=== PATIENT | female | born 1970 | race Caucasian/White ===

== ENCOUNTER 2017-03-06 07:58 | Day surgery (SDC) | payer MEDICARE, MEDICAID ==
[2017-02-04 09:01] VITALS: BMI 26.7
[~2017-03-06 07:58] MED LIST: Bupivacaine 0.5% Inj(30mL) ONE; Lidocaine 1% Inj (20ml) ONE; ceFAZolin IV 2 gm in Dextrose 0 GM/0 ML BAG IVPB ONE
[2017-03-06] MEDS ORDERED: Dexamethasone 4 mg/1 ml ONE ×2 (11:25→11:42)
[2017-03-06] MEDS ORDERED: Lidocaine 2% Inj (20ml) ONE (11:25)
[2017-03-06] MEDS ORDERED: ceFAZolin IV 1 gm in Dextrose 1 GM/50 ML BAG IVPB ONE (11:25)
[2017-03-06] MEDS ORDERED: Bupivacaine HCl 0.5% PF (10 ml) Inj ONE ×3 (11:26→11:43)
[2017-03-06] MEDS ORDERED: Lactated Ringer's 1,000 ML IV ONE (11:26)
[2017-03-06] MEDS ORDERED: Propofol 10 mg/ml Inj (20 ML) ONE (11:26)
[2017-03-06] MEDS ORDERED: Midazolam 2 MG/2 ML VIAL ONE (11:26)
[2017-03-06] MEDS ORDERED: Rocuronium 10 mg/ml (5 ml) ONE (11:31)
[2017-03-06] MEDS ORDERED: Bacitracin 500 Units/gm Oint Foilpak UD ONE (11:43)
[2017-03-06] MEDS ORDERED: Neostigmine Methylsulfate 3mg/3ml Syringe IV ONE (12:24)
[2017-03-06] MEDS ORDERED: Oxycodone/Acetaminophen 5/325 mg Tab PO PRN ×2 (12:41)
--- NOTE | 2017-03-06 12:43 | CP.PCM.PN ---
Objective - Vital Signs/Intake and Output Vital Signs (last 24 hours): Temp Pulse Resp BP Pulse Ox 97.8 F 56 L 20 98/66 L 98 03/06/17 08:16 03/06/17 08:16 03/06/17 08:16 03/06/17 08:16 03/06/17 08:16 - Medications Medications: Current Medications Acetaminophen (Tylenol 325mg Tab) 650 mg PO Q6 PRN PRN Reason: Pain, Mild (1-3) Oxycodone/Acetaminophen (Percocet 5/325 Mg Tab) 1 tab PO Q6H PRN PRN Reason: Pain, moderate (4-7) Stop: 03/09/17 12:42 Oxycodone/Acetaminophen (Percocet 5/325 Mg Tab) 2 tab PO Q6H PRN PRN Reason: Pain, severe (8-10) Stop: 03/09/17 12:42
--- NOTE | 2017-03-06 12:44 | PCM.SURG1 ---
Surgeon's Initial Post Op Note - Surgeon's Notes Surgeon: Dr. Cruz Automatic Pinsetter Adjuster: Dr. Preston, Dr. Alan Type of Anesthesia: General Endo, Local Pre-Operative Diagnosis: B/L recurrent HAV Operative Findings: See dictation. I: 30ml 1:1 1% lidocaine plain, 0.5% marcaine plain; 20ml 0.5% marcaine plain; 2ml dexamethasone Post-Operative Diagnosis: same Operation Performed: B/L scar excision, bunionectomy Specimen/Specimens Removed: bone, soft tissue B/L feet Estimated Blood Loss: EBL {In ML}: 5 Blood Products Given: N/A Drains Used: No Drains Post-Op Condition: Good Date of Surgery/Procedure: 03/06/17 Time of Surgery/Procedure: 11:30
[2017-03-06] MEDS ORDERED: HYDROmorphone 0.5 mg/0.5 ml ISec IVP PRN (12:47)
[2017-03-06] MEDS ORDERED: Lactated Ringer's 1,000 ML IV SCH (13:00)
--- NOTE | 2017-03-06 14:49 | RAD ---
PROCEDURE: Bilateral Feet Radiographs. HISTORY: s/o B/L foot surgery COMPARISON: None. FINDINGS: BONES: Right Foot: Osteotomy distal 5th metatarsal. Surgical screw noted. Plantar calcaneal spur. No fracture. Left Foot: No fracture. Plantar calcaneal spur. JOINTS: Right Foot: Normal. No osteoarthritis. Left Foot: Normal. No osteoarthritis. SOFT TISSUES: Right Foot: Normal. Left Foot: Small amount of gas in the interspace between 1st and 2nd metatarsal head indicating likely recent surgery. OTHER FINDINGS: None. IMPRESSION: Right 5th metatarsal osteotomy. Uncertain as to surgery reportedly performed on left foot.
[2017-03-06 15:35] VITALS: BP 93/56; PULSE 65; RESP 20; TEMP 98; O2SAT 99
--- NOTE | 2017-03-11 16:20 | PCM.OP ---
Operative Report - Operative Report Date of Surgery/Procedure: 03/06/17 Time of Surgery/Procedure: 11:30 Surgeon: Dr. Cruz Machine Assembler For Puller Over: Dr. Preston Anesthesia/Sedation: General, local injection Pre-Operative Diagnosis: B/L foot recurrent bunion deformity Post-Operative Diagnosis: same as above Indication for Surgery: This patiet is a 46 y/o female with the aformentioned diagnosis. She is being treated by Dr. Cruz in his office on an out patient basis where she has exhausted all conservative treatment options. All conservative and surgical treatment options as well as all alternatives, benefits, complications and risks to surgical procedure were explained to the patient and his family at length to their understanding. The patient desires surgical intervention at this time. All questions were addressed and answered. No guarantees were given nor implied. The consent was signed and the NPO status was confirmed before bringing the patient into the operating room. Operative Findings: The patient was brought into the operating room and placed on the operating room table in the supine position. A pneumatic ankle tourniquet was applied to the right and left ankles around the supramalleolar area. After induction of IV sedation a local injection consisting of 30ml total of a 1:1 mixture of 1% lidocaine plain and 0.5% marcaine plain were adminsitered to the right and left foot in a local block fashion. After local anesthesia was achieved, the feet was prepped and draped in the usual sterile manner and the procedure began. Procedure/Operation Description: Procedure 1: Right foot bunion correction. Attention was directed to the dorsal medial aspect of the right foot 1st MTPJ where an eliptical incision was made utilizing a 15-blade to excise the previous surgical scar. The incision was deepened through the superficial and subuctaneous tissues using sharp and blunt dissection. Care was taken to retract all vital nuerovascular and tendinous structures throughout the duration of the procedure. Next, attention was directed back to the dorsal medial 1st MTPJ where an inverted L-type capsulotomy was performed. A 15-blade and freer elevator were then utilized to free the periosteal and capsular structures from the head of the first metatarsal. It was noted at this time that there was a prominent hypertrophic portion of bone at the dorsal medial 1st met head. With the head of the 1st metatarsal now adequately exposed, a sagittal saw was used to resect the prominent medial eminence. The sagittal saw was then again utilized to remove any other remaining prominent portions of bone from the 1st met head and proximal phalanx of the hallux. The surgical area was then flused with copious amounts of sterile normal saline. The capsular and periosteal structures were then reapproximated with 2-0 and 3-0 vicryl suture. The subcutaneous tissues were reapproximated with 4-0 vicryl suture. The skin was reapproximated with 4-0 prolene suture. Procedure 2: Left foot bunion correction. Attention was directed to the dorsal medial aspect of the left foot 1st MTPJ where an eliptical incision was made utilizing a 15-blade to excise the previous surgical scar. The incision was deepened through the superficial and subuctaneous tissues using sharp and blunt dissection. Care was taken to retract all vital nuerovascular and tendinous structures throughout the duration of the procedure. Next, attention was directed back to the dorsal medial 1st MTPJ where an inverted L-type capsulotomy was performed. A 15-blade and freer elevator were then utilized to free the periosteal and capsular structures from the head of the first metatarsal. It was noted at this time that there was a prominent hypertrophic portion of bone at the dorsal medial 1st met head. With the head of the 1st metatarsal now adequately exposed, a sagittal saw was used to resect the prominent medial eminence. The sagittal saw was then again utilized to remove any other remaining prominent portions of bone from the 1st met head and proximal phalanx of the hallux. The surgical area was then flused with copious amounts of sterile normal saline. The capsular and periosteal structures were then reapproximated with 2-0 and 3-0 vicryl suture. The subcutaneous tissues were reapproximated with 4-0 vicryl suture. The skin was reapproximated with 4- 0 prolene suture. Estimated Blood Loss: None Complications: None Discharge & Condition: Patient was escorted from the OR to the recovery room with vital signs stable and neurovascular status intact. Patient tolerated the procedure and anesthesia well with no complications. Patient will follow up with Dr. Cruz in his office on an outpt basis.
== END 2017-03-06 15:20 | disposition home or self-care (01) ==
LOC: C.SDS 07:58
PROVIDERS: ATTEND Podiatrist Foot & Ankle Surgery
DX: M21.612 Bunion of left foot (principal); M21.611 Bunion of right foot
CPT/HCPCS: 28296; 73620; 82948; 88307; 88311; J0690; J1100; J2250; J2405; J2704; J2710; J2765; J3010; J7120

== ENCOUNTER 2017-05-02 09:54 | Emergency (ER) | payer MEDICARE, MEDICAID ==
[2017-05-02 09:54] VITALS: BMI 26.7
[2017-05-02 10:14] VITALS: BP 96/66; PULSE 67; RESP 16; TEMP 97.9; O2SAT 98
--- NOTE | 2017-05-02 10:46 | C.PDOC ---
History Of Present Illness 46 y/o F c PMHx diabetes, P/w rectal pain for 2 days. Denies bleeding, fever, abdominal pain, and shortness of breath. Time Seen by Provider: 05/02/17 10:25 Chief Complaint (Nursing): Abdominal Pain History Per: Patient History/Exam Limitations: no limitations Onset/Duration Of Symptoms: Days (x 2) Current Symptoms Are (Timing): Still Present Past Medical History Reviewed: Historical Data, Nursing Documentation, Vital Signs Vital Signs: Last Vital Signs Temp 97.9 F 05/02/17 10:09 Pulse 67 05/02/17 10:09 Resp 16 05/02/17 10:09 BP 96/66 L 05/02/17 10:09 Pulse Ox 98 05/02/17 10:55 - Medical History PMH: Arthritis, Asthma, Bronchitis, COPD, Diabetes Denies: Chronic Kidney Disease Surgical History: Appendectomy, Endoscopy, Tonsillectomy - [facility] Procedures EXCISION OR CORRECTION OF BUNIONETTE (03/02/13) Family History: States: Unknown Family Hx - Social History Hx Tobacco Use: No Hx Alcohol Use: No Hx Substance Use: No - Immunization History Hx Tetanus Toxoid Vaccination: Yes Hx Influenza Vaccination: Yes Hx Pneumococcal Vaccination: Yes Review Of Systems Except As Marked, All Systems Reviewed And Found Negative. Constitutional: Negative for: Fever Respiratory: Negative for: Shortness of Breath Gastrointestinal: Positive for: Rectal Pain. Negative for: Abdominal Pain, Other (Bleeding) Physical Exam - Physical Exam Additional Physical Exam Comments: Constitutional: No acute distress. Head: Normocephalic. Atraumatic. Eyes: PERRL. ENT: Moist mucous membranes. Neck: Supple. Cardiovascular: Regular rate. Radial pulse 2+ bilaterally. Chest: No tenderness. Respiratory: Clear to auscultation bilaterally. GI: Soft. Non-tender. Non-distended. Rectal- Hemorrhoids, non-thrombosed. Back: No CVA tenderness. Musculoskeletal: No tenderness or swelling of extremities. Skin: No rash. Neurologic: Alert, no focal deficit. ED Course And Treatment O2 Sat by Pulse Oximetry: 98 (RA) Pulse Ox Interpretation: Normal Disposition - Disposition Disposition: HOME/ ROUTINE Disposition Time: 10:37 Condition: STABLE Prescriptions: Docusate [Colace] 100 mg PO BID #30 cap Ibuprofen [Motrin] 1 tab PO Q6 #30 tab Phenyleph/Mineral Oil/Petrolat [Preparation H Ointment] 1 appl TOP QID #57 g Instructions: Hemorrhoids (ED) Forms: [facility] (Guinean) - Clinical Impression Clinical Impression: Hemorrhoids - Scribe Statement The provider has reviewed the documentation as recorded by the Scribe Chioma Sandoval All medical record entries made by the Scribe were at my direction and personally dictated by me. I have reviewed the chart and agree that the record accurately reflects my personal performance of the history, physical exam, medical decision making, and the department course for this patient. I have also personally directed, reviewed, and agree with the discharge instructions and disposition.
== END 2017-05-02 10:57 | disposition home or self-care (01) ==
LOC: C.ER 09:54
DX: K64.9 Unspecified hemorrhoids (principal)

== ENCOUNTER 2017-08-08 10:03 | Emergency (ER) | payer MEDICARE, MEDICAID ==
[2017-08-08 10:17] VITALS: BMI 26.5
--- NOTE | 2017-08-08 10:23 | C.PDOC ---
History Of Present Illness 47 year old female with Hx of DM presents to the ED for evaluation of congestion , mild cough with non specific sputum for the past 2 weeks. Patient reports taking steroids, teraflu and Nyquil with no relief. Patient denies fever, nausea , vomit, abdominal pain, headache, weakness, numbness. Time Seen by Provider: 08/08/17 10:11 Chief Complaint (Nursing): Shortness Of Breath History Per: Patient History/Exam Limitations: no limitations Onset/Duration Of Symptoms: Days Current Symptoms Are (Timing): Still Present Quality: Other (Congestion) Exacerbating Factor(s): Coughing Severity: Mild Associated Symptoms: Productive Cough (Non specific). denies: Dizziness, Light- headedness, Tingling In Hands Or Face Recent travel outside of the [place]: No Additional History Per: Patient Past Medical History Reviewed: Historical Data, Nursing Documentation, Vital Signs Vital Signs: Last Vital Signs Temp 98.1 F 08/08/17 10:39 Pulse 99 H 08/08/17 10:39 Resp 20 08/08/17 10:39 BP 129/84 08/08/17 10:39 Pulse Ox 97 08/08/17 10:39 - Medical History PMH: Arthritis, Asthma, Bronchitis, COPD, Diabetes Denies: Chronic Kidney Disease Surgical History: Appendectomy, Endoscopy, Tonsillectomy - [facility] Procedures EXCISION OR CORRECTION OF BUNIONETTE (03/02/13) Family History: States: Unknown Family Hx - Social History Hx Tobacco Use: No Hx Alcohol Use: No Hx Substance Use: No - Immunization History Hx Tetanus Toxoid Vaccination: Yes Hx Influenza Vaccination: Yes Hx Pneumococcal Vaccination: Yes Review Of Systems Constitutional: Negative for: Fever, Chills ENT: Positive for: Nose Congestion Cardiovascular: Negative for: Chest Pain Respiratory: Positive for: Cough, Sputum (non specific) Gastrointestinal: Negative for: Nausea, Vomiting, Abdominal Pain Musculoskeletal: Negative for: Neck Pain Skin: Negative for: Rash Neurological: Negative for: Weakness, Numbness Physical Exam - Physical Exam Appears: Non-toxic, No Acute Distress Skin: Normal Color, Warm, Dry Head: Atraumatic, Normacephalic Eye(s): bilateral: Normal Inspection Ear(s): Bilateral: Normal Nose: No Discharge, No Other (Post nasal drip) Oral Mucosa: Moist, No Drooling Throat: Normal, No Erythema, No Exudate Neck: Normal ROM, Supple Lymphatic: No Adenopathy Chest: Symmetrical Cardiovascular: Rhythm Regular, No Murmur Respiratory: Normal Breath Sounds, No Rales, No Rhonchi, No Wheezing Gastrointestinal/Abdominal: Soft, No Tenderness, No Guarding, No Rebound Extremity: Normal ROM, No Calf Tenderness, No Deformity, No Swelling Neurological/Psych: Oriented x3, Normal Speech, Normal Cognition ED Course And Treatment O2 Sat by Pulse Oximetry: 99 (On RA) Pulse Ox Interpretation: Normal - Radiology CXR: Interpreted by Me CXR Interpretation: Yes: No Acute Disease Medical Decision Making Medical Decision Making: Plan: * CXR ordered * Albuterol 3 ml INH given * Prednisone 20 mg PO given Disposition Doctor Will See Patient In The: Office - Disposition Disposition: HOME/ ROUTINE Disposition Time: 11:40 Condition: STABLE Prescriptions: Albuterol HFA [Ventolin HFA 90 mcg/actuation (8 g)] 2 puff IH [id number] PRN #1 puff PRN Reason: Shortness Of Breath predniSONE [Prednisone] 40 mg PO DAILY 7 Days #14 tab Instructions: Asthma (ED), Acute Bronchitis (ED) Forms: [facility] (Persian) - Clinical Impression Clinical Impression: Bronchitis, Asthma - Scribe Statement The provider has reviewed the documentation as recorded by the Scribe Sergio Delacruz All medical record entries made by the Scribe were at my direction and personally dictated by me. I have reviewed the chart and agree that the record accurately reflects my personal performance of the history, physical exam, medical decision making, and the department course for this patient. I have also personally directed, reviewed, and agree with the discharge instructions and disposition.
[2017-08-08] MEDS ORDERED: Albuterol-Ipratrop 3 mg / 0.5 (3 ml) UD INH STA (10:27)
[2017-08-08] MEDS ORDERED: Albuterol 0.083% Inhal Sol (2.5 mg/3 mL) UD ONE (10:54)
[2017-08-08 12:13] VITALS: BP 128/78; PULSE 101; RESP 24; TEMP 98.9; O2SAT 97
--- NOTE | 2017-08-08 17:57 | RAD ---
HISTORY: sob COMPARISON: Chest radiographs 01/26/2017. TECHNIQUE: Chest PA and lateral FINDINGS: LUNGS: No active pulmonary disease. PLEURA: No significant pleural effusion identified. No pneumothorax apparent. CARDIOVASCULAR: Normal. OSSEOUS STRUCTURES: No significant abnormalities. VISUALIZED UPPER ABDOMEN: Normal. OTHER FINDINGS: None. IMPRESSION: No interval acute cardiopulmonary disease appreciated.
== END 2017-08-08 12:09 | disposition home or self-care (01) ==
LOC: C.ER 10:03
DX: J45.909 Unspecified asthma, uncomplicated (principal); E11.9 Type 2 diabetes mellitus without complications

== ENCOUNTER 2018-02-07 01:33 | Emergency (ER) | payer MEDICARE, MEDICAID ==
[2018-02-07 01:34] VITALS: BMI 26.5
--- NOTE | 2018-02-07 03:58 | C.PDOC ---
History Of Present Illness 47 yo female w/PMHx of asthma, NIDDM BIBA due to alcohol intoxication. As per EMS, "she was found on street, intoxicated" . At present time, pt is awake, to verbal stimuli, unable to give history on present illness. NO evidence of trauma or injury. Time Seen by Provider: 02/07/18 03:14 Chief Complaint (Nursing): Substance Abuse Past Medical History Reviewed: Historical Data, Nursing Documentation, Vital Signs Vital Signs: Last Vital Signs Temp 97.7 F 02/07/18 05:43 Pulse 70 02/07/18 05:43 Resp 18 02/07/18 05:43 BP 98/63 L 02/07/18 05:43 Pulse Ox 94 L 02/07/18 06:12 - Medical History PMH: Arthritis, Asthma, Bronchitis, COPD, Diabetes Denies: Chronic Kidney Disease Surgical History: Appendectomy, Endoscopy, Tonsillectomy - [facility] Procedures EXCISION OR CORRECTION OF BUNIONETTE (03/02/13) Family History: States: Unknown Family Hx - Social History Hx Tobacco Use: No Hx Alcohol Use: No Hx Substance Use: No - Immunization History Hx Tetanus Toxoid Vaccination: Yes Hx Influenza Vaccination: Yes Hx Pneumococcal Vaccination: Yes Review Of Systems Review Of Systems: ROS cannot be obtained secondary to pt's inabilty to answer questions. Physical Exam - Physical Exam Appears: Well, No Acute Distress Skin: Normal Color, Warm, No Ecchymosis Head: Atraumatic, Normacephalic Eye(s): bilateral: PERRL (2 mmslugish reactive to light) Nose: No Flaring, No Deformity, No Tenderness Oral Mucosa: Moist, No Drooling, No Trismus Throat: No Drooling Neck: Trachea Midline, No Midline Cervical Tenderness, No Paracervical Tenderness, No Step Off Deformity, Supple Cardiovascular: Rhythm Regular, No Murmur Respiratory: No Decreased Breath Sounds, No Accessory Muscle Use, No Stridor, No Wheezing Gastrointestinal/Abdominal: Soft, No Tenderness, No Distention, No Guarding Back: No CVA Tenderness Extremity: Normal ROM, No Deformity, No Swelling Neurological/Psych: Normal Motor, Normal Sensation, Normal Reflexes ED Course And Treatment O2 Sat by Pulse Oximetry: 94 Pulse Ox Interpretation: Abnormal Progress Note: Pt was OBS in ED for 5 hours, remained stable. On re-evaluation , pt is sleeping comfortably, not in any apparent distress. Pt was re- evaluated every hours, no neurological findings. Pt is easily arousable to verbal stimuli. At 7:00AM, still appears intoxicated. Case discussed and sign out, sobriety pending. Disposition - Disposition Disposition Time: 07:00 Condition: STABLE Forms: [facility] (Dominican) - Clinical Impression Clinical Impression: Alcohol intoxication Physician Patient Turnover Patient Signed Over To: Bella Reyes Handoff Comments: sobriety, re-eval, dispo
[2018-02-07 10:50] VITALS: BP 100/60; PULSE 78; RESP 18; TEMP 98.3; O2SAT 95
== END 2018-02-07 10:45 | disposition home or self-care (01) ==
LOC: C.ER 01:33
DX: F10.129 Alcohol abuse with intoxication, unspecified (principal); E11.9 Type 2 diabetes mellitus without complications

== ENCOUNTER 2018-04-06 13:21 | Emergency (ER) | payer MEDICARE, MEDICAID ==
[2018-04-06 13:21] VITALS: BMI 26.5
[2018-04-06 13:26] VITALS: RESP 18
[2018-04-06 14:09] LABS: BASO % 0.4 % (0.0-2.0); EOS # 0.1 K/uL (0.0-0.7); EOS % 1.2 % (0.0-4.0); HCG,QUALITATIVE URINE NEGATIVE (NEGATIVE); HEMOGLOBIN 13.7 g/dL (11.0-16.0); LYMPH # 1.8 K/uL (1.0-4.3); LYMPH % 25.5 % (20.0-40.0); MEAN CORPUSCULAR HGB CONC 34.1 g/dL (33.0-37.0); MEAN PLATELET VOLUME 9.7 fL (7.2-11.7); MONO # 0.5 K/uL (0.0-0.8); NEUT # 4.6 K/uL (1.8-7.0); NEUT % 65.9 % (50.0-75.0); RBC 4.41 Mil/uL (3.80-5.20); RED CELL DISTRIBUTION WIDTH 13.7 % (11.5-14.5); WHITE BLOOD COUNT 6.9 K/uL (4.8-10.8)
[2018-04-06 14:13] LABS: URINE BILIRUBIN NEGATIVE (NEGATIVE); URINE BLOOD NEGATIVE (NEGATIVE); URINE CLARITY Clear (Clear); URINE COLOR Yellow (YELLOW); URINE GLUCOSE (UA) 3+ mg/dL (Normal); URINE LEUKOCYTE ESTERASE NEG Leu/uL (Negative); URINE PROTEIN NEGATIVE (NEGATIVE); URINE UROBILINOGEN NORMAL mg/dL (0.2-1.0)
--- NOTE | 2018-04-06 14:23 | RAD ---
Date of service: 04/06/2018 PROCEDURE: CHEST RADIOGRAPH, 1 VIEW HISTORY: CP COMPARISON: 09/15/2017 FINDINGS: LUNGS: Clear. PLEURA: No pneumothorax or pleural fluid seen. CARDIOVASCULAR: Normal. OSSEOUS STRUCTURES: No significant abnormalities. VISUALIZED UPPER ABDOMEN: Normal. OTHER FINDINGS: None. IMPRESSION: No active disease.
[2018-04-06 14:26] LABS: ALB/GLOB RATIO 1.6 (1.0-2.1); ALBUMIN 4.5 g/dL (3.5-5.0); ALT/SGPT 26 U/L (9-52); AST/SGOT 18 U/L (14-36); BLOOD UREA NITROGEN 15 mg/dL (7-17); CALCIUM 9.2 mg/dl (8.6-10.4); GFR AFRICAN-AMERICAN > 60; GFR NON-AFRICAN AMERICAN > 60
[2018-04-06 14:28] LABS: D DIMER < 200 ng/mlDDU (0-243); PARTIAL THROMBOPLASTIN TIME 28 SECONDS (21-34); PROTHROMBIN TIME 10.5 SECONDS (9.7-12.2)
[2018-04-06 14:37] LABS: B-TYPE NATRIURETIC PEPTIDE 75.7 pg/mL (0-450); CK-MB 0.49 ng/mL (0.0-3.38)
--- NOTE | 2018-04-06 15:12 | C.PDOC ---
History Of Present Illness 47 yo female presents to ER with complaints of left sided chest pain, described as sharp and pinching, present intermittently for 4-5 days. She reports the pain was worse today, prompting the ER visit. Patient also reports feeling lightheaded, sweats. She denies fever, cough, abdominal pain, nausea, vomiting , current SOB. Patient has stress test last year she states was normal, Simulation Developer is Dr. Paresh Ortega. Cardiologit: Dr. Caitie Ortega Time Seen by Provider: 04/06/18 13:27 Chief Complaint (Nursing): Chest Pain History Per: Patient History/Exam Limitations: no limitations Onset/Duration Of Symptoms: Days (4-5), Intermittent Episodes Current Symptoms Are (Timing): Still Present Severity: Mild Associated Symptoms: Other (lightheaded). denies: Nausea Additional History Per: Patient Past Medical History Reviewed: Historical Data, Nursing Documentation, Vital Signs Vital Signs: Last Vital Signs Temp 98.2 F 04/06/18 18:21 Pulse 76 04/06/18 18:21 Resp 18 04/06/18 18:21 BP 100/70 04/06/18 18:21 Pulse Ox 97 04/06/18 18:21 - Medical History PMH: Arthritis, Asthma, Bronchitis, COPD, Diabetes Surgical History: Appendectomy, Endoscopy, Tonsillectomy - [facility] Procedures EXCISION OR CORRECTION OF BUNIONETTE (03/02/13) Family History: States: No Known Family Hx - Social History Hx Tobacco Use: No Hx Alcohol Use: No Hx Substance Use: No - Immunization History Hx Tetanus Toxoid Vaccination: Yes Hx Influenza Vaccination: Yes Hx Pneumococcal Vaccination: Yes Review Of Systems Constitutional: Positive for: Sweats. Negative for: Fever, Chills Cardiovascular: Positive for: Chest Pain. Negative for: Palpitations Respiratory: Negative for: Cough, Shortness of Breath Gastrointestinal: Negative for: Nausea, Vomiting, Abdominal Pain Skin: Negative for: Rash Neurological: Negative for: Weakness, Numbness, Headache, Dizziness Physical Exam - Physical Exam Appears: Well, Non-toxic, No Acute Distress Skin: Normal Color, Warm, Dry, No Rash Head: Normacephalic Eye(s): bilateral: Normal Inspection Oral Mucosa: Moist Neck: Supple Chest: Symmetrical, No Tenderness Cardiovascular: Rhythm Regular, No Murmur Respiratory: Normal Breath Sounds, No Rales, No Rhonchi, No Wheezing Gastrointestinal/Abdominal: Normal Exam, Bowel Sounds, Soft, No Tenderness Back: Normal Inspection Extremity: Normal ROM, No Pedal Edema, No Calf Tenderness Pulses: Left Dorsalis Pedis: Normal, Right Dorsalis Pedis: Normal Neurological/Psych: Oriented x3 Gait: Steady ED Course And Treatment - Laboratory Results Result Diagrams: 04/06/18 14:02 04/06/18 14:02 ECG: Interpreted By Me, Viewed By Me ECG Rhythm: Sinus Rhythm (sinus rhythm 62 bpm, normal axis, RBBB, no acute ST/T wave changes), R BBB (old - seen on prior EKG) ECG Interpretation: No Acute Changes Interpretation Of ECG: Normal axis, no acute ST/T changes Rate From EC O2 Sat by Pulse Oximetry: 100 (RA) Pulse Ox Interpretation: Normal - Radiology CXR: Interpreted by Me, Viewed By Me CXR Interpretation: Yes: No Acute Disease. No: Infiltrates Progress Note: Blood work, including d-dimer and CHRISSY x 2, EKG, CXR, UA, Upreg ordered and reviewed. 18:30- Patient feeling better, no current pain/distress. Blood work, EKG, CXR WNL. Do not suspect cardiac etiology. Patient instructed to follow up with PMD in 1-2 days, and understands she should return to ED if she has worsening or concerning symptoms. Reevaluation Time: 18:00 Reassessment Condition: Improved (On reassessment, patient is resting comfortably still c/o some mild pain. PO Naprosyn and Flexeril ordered.) Disposition Counseled Patient/Family Regarding: Studies Performed, Diagnosis, Need For Followup, Rx Given - Disposition Referrals: Caitie Ortega MD [Staff Provider] - Edinson Parham MD [Medical Doctor] - Disposition: HOME/ ROUTINE Disposition Time: 18:30 Condition: STABLE Additional Instructions: FOLLOW UP WITH YOUR DOCTOR IN 1-2 DAYS USE MEDICATIONS NEEDED RETURN TO ER IF SYMPTOMS WORSEN Prescriptions: Cyclobenzaprine [Flexeril] 10 mg PO BID PRN #15 tab PRN Reason: Muscle Spasm Naproxen 375 mg PO BID PRN #20 tablet PRN Reason: pain Instructions: Chest Pain That Is Not Caused by the Heart (DC) Forms: [facility] (Chilean) Print Language: MALDIVIAN - POA Present On Arrival: None - Clinical Impression Clinical Impression: Non-cardiac chest pain - Scribe Statement The provider has reviewed the documentation as recorded by the Edward John Provider Attestation: All medical record entries made by the Edward were at my direction and personally dictated by me. I have reviewed the chart and agree that the record accurately reflects my personal performance of the history, physical exam, medical decision making, and the department course for this patient. I have also personally directed, reviewed, and agree with the discharge instructions and disposition.
[2018-04-06 17:57] LABS: CK-MB 0.28 ng/mL (0.0-3.38)
[2018-04-06] MEDS ORDERED: Naproxen 550 mg Tab PO STA (18:00)
[2018-04-06] MEDS ORDERED: Naproxen 550 mg Tab PO ONE (18:18)
[2018-04-06 18:22] VITALS: BP 100/70; PULSE 76; TEMP 98.2
[2018-04-07 10:42] VITALS: O2SAT 100
--- NOTE | 2018-04-08 21:29 | CARD ---
APPROVED REPORT Date of service: 04/06/2018 EKG Measurement Heart [id number] <Conclusion> Normal sinus rhythm Incomplete right bundle branch block Borderline ECG
== END 2018-04-06 18:30 | disposition home or self-care (01) ==
LOC: C.ER 13:21
DX: R07.89 Other chest pain (principal)

== ENCOUNTER 2018-10-12 18:40 | Observation (INO) | payer MEDICARE, MEDICAID ==
[2018-10-12 18:58] VITALS: BMI 25.4
[2018-10-12] MEDS ORDERED: Sodium Chloride 0.9% 1,000 ML IV ONE ×2 (19:14→22:41)
[2018-10-12] MEDS ORDERED: Sodium Chloride 0.9% 1,000 ML ONE (19:36)
--- NOTE | 2018-10-12 19:47 | C.PDOC ---
History Of Present Illness 48 year old female presents to the ED for evaluation of abdominal cramping associated with nausea, vomiting and diarrhea which began two days ago. Patient states she ate rice, beans and oxtail yesterday. She reports her diarrhea is w atery, but denies blood in stool. She denies fever, chills, urinary symptoms, vaginal bleeding/discharge. Time Seen by Provider: 10/12/18 19:05 Chief Complaint (Nursing): Abdominal Pain History Per: Patient History/Exam Limitations: no limitations Onset/Duration Of Symptoms: Days (2) Current Symptoms Are (Timing): Still Present Location Of Pain/Discomfort: Diffuse Quality Of Discomfort: Cramping Associated Symptoms: Nausea, Vomiting, Diarrhea. denies: Fever, Urinary Sy mptoms Last Bowel Movement: Today Additional History Per: Patient Abnormal Vaginal Bleeding: No Past Medical History Reviewed: Historical Data, Nursing Documentation, Vital Signs Vital Signs: Last Vital Signs Temp 98.9 F 10/12/18 18:58 Pulse 98 H 10/12/18 18:58 Resp 17 10/12/18 18:58 BP 110/81 10/12/18 18:58 Pulse Ox 98 10/12/18 18:58 - Medical History PMH: Arthritis, Asthma, Bronchitis, COPD, Diabetes Denies: Chronic Kidney Disease Surgical History: Appendectomy, Endoscopy, Tonsillectomy - [facility] Procedures EXCISION OR CORRECTION OF BUNIONETTE (03/02/13) Family History: States: Unknown Family Hx - Social History Hx Tobacco Use: No Hx Alcohol Use: No Hx Substance Use: No - Immunization History Hx Tetanus Toxoid Vaccination: Yes Hx Influenza Vaccination: Yes Hx Pneumococcal Vaccination: Yes Review Of Systems Constitutional: Negative for: Fever, Chills Gastrointestinal: Positive for: Nausea, Vomiting, Abdominal Pain (cramping ), Diarrhea. Negative for: Hematochezia Genitourinary: Negative for: Dysuria, Frequency, Hematuria, Vaginal Discharge, Vaginal Bleeding Physical Exam - Physical Exam Appears: Non-toxic, No Acute Distress Skin: Normal Color, Warm, Dry Head: Atraumatic, Normacephalic Eye(s): bilateral: Normal Inspection Oral Mucosa: Moist Neck: Supple Chest: Symmetrical, No Deformity, No Tenderness Cardiovascular: Rhythm Regular, No Murmur Respiratory: Normal Breath Sounds, No Rales, No Rhonchi, No Wheezing Gastrointestinal/Abdominal: Soft, Tenderness (mild, diffuse ), No Guarding, No Rebound Extremity: Normal ROM, Capillary Refill (less than 2 seconds ) Neurological/Psych: Oriented x3, Normal Speech, Normal Cognition ED Course And Treatment - Laboratory Results Result Diagrams: 10/12/18 19:52 10/12/18 19:52 O2 Sat by Pulse Oximetry: 98 (on RA) Pulse Ox Interpretation: Normal Medical Decision Making Medical Decision Making: Assessment: abdominal cramping, nausea, vomiting and diarrhea Plan: * bloodwork * urinalysis * Obstructive Series Abdomen * Pepcid IVP * Toradol IVP * Zofran IVP * IV Fluids * reassess and disposition Progress: Bloodwork, urinalysis, Obstructive Series Abdomen ordered and reviewed. Pepcid IVP, Toradol IVP, Zofran IVP, and IV Fluids given. Disposition Discussed With : Jeevan Salas Doctor Will See Patient In The: Hospital Counseled Patient/Family Regarding: Studies Performed, Diagnosis - Disposition Disposition: HOSPITALIZED Disposition Time: 22:43 Condition: FAIR Forms: [facility] (Eritrean) - Clinical Impression Clinical Impression: Colitis - Scribe Statement The provider has reviewed the documentation as recorded by the Scribe (Allison Alcala) Provider Attestation: All medical record entries made by the Scribe were at my direction and personally dictated by me. I have reviewed the chart and agree that the record accurately reflects my personal performance of the history, physical exam, medical decision making, and the department course for this patient. I have also personally directed, reviewed, and agree with the discharge instructions and disposition.
[2018-10-12 19:57] LABS: BASO % 0.2 % (0.0-2.0); EOS % 0.1 % (0.0-4.0); HEMOGLOBIN 16.6 g/dL (11.0-16.0); LYMPH # 0.9 K/uL (1.0-4.3); LYMPH % 7.9 % (20.0-40.0); MEAN CELL VOLUME 90.5 fL (81.0-99.0); MEAN CORPUSCULAR HEMOGLOBIN 29.3 pg (27.0-31.0); MEAN CORPUSCULAR HGB CONC 32.3 g/dL (33.0-37.0); MEAN PLATELET VOLUME 10.3 fL (7.2-11.7); MONO # 0.6 K/uL (0.0-0.8); NEUT # 10.4 K/uL (1.8-7.0); NEUT % 86.8 % (50.0-75.0); NRBC % 0.1 % (0.0-2.0); PLATELET COUNT 222 K/uL (130-400); RBC 5.65 Mil/uL (3.80-5.20); RED CELL DISTRIBUTION WIDTH 14.6 % (11.5-14.5)
[2018-10-12 20:14] LABS: BLOOD UREA NITROGEN 16 mg/dL (7-17); CALCIUM 9.6 mg/dl (8.6-10.4); GFR NON-AFRICAN AMERICAN > 60; LIPASE 47 U/L (23-300)
[2018-10-12 20:18] LABS: ALB/GLOB RATIO 1.5 (1.0-2.1); ALBUMIN 5.4 g/dL (3.5-5.0); ALT/SGPT 7 U/L (9-52); AST/SGOT 39 U/L (14-36)
[2018-10-12 20:52] LABS: SQUAMOUS EPITHIAL 1 /hpf (0-5); URINE BILIRUBIN NEGATIVE (NEGATIVE); URINE BLOOD NEGATIVE (NEGATIVE); URINE CLARITY Clear (Clear); URINE COLOR Yellow (YELLOW); URINE GLUCOSE (UA) 3+ mg/dL (Normal); URINE LEUKOCYTE ESTERASE NEG Leu/uL (Negative); URINE PROTEIN 2+ mg/dL (NEGATIVE); URINE UROBILINOGEN NORMAL mg/dL (0.2-1.0)
[2018-10-12 21:31] LABS: BANDS 6 % (0-2); LYMPHOCYTE 9 % (20-40); MONOCYTE 3 % (0-10); NEUTROPHIL 82 % (50-75); PLATELET ESTIMATE NORMAL (NORMAL); TOTAL CELLS COUNTED 100
[2018-10-12] MEDS ORDERED: Iodixanol 320 MG/ML 100 ML BOTTLE IV ONE (21:36)
[2018-10-12 22:27] VITALS: RESP 20
[2018-10-12] MEDS ORDERED: metroNIDAZOLE IV 500 mg/100 ml 500 MG/100 ML BAG IVPB STA (22:39)
[2018-10-12] MEDS ORDERED: Ciprofloxacin 400mg/200ml D5W 400 MG/200 ML BAG IVPB STA (22:39)
[2018-10-13] MEDS: metroNIDAZOLE IV 500 mg/100 ml 500 MG/100 ML BAG IVPB SCH ×3 (06:41→21:33)
[2018-10-13] MEDS: (Novolin R) Insulin Human Regular 100 units/ml vial SC SCH ×5 (08:12→21:28)
--- NOTE | 2018-10-13 09:17 | RAD ---
Date of service: 10/12/2018 PROCEDURE: Radiographs of the chest and abdomen (obstructive series) HISTORY: abd pain COMPARISON: Portable chest 04/06/2018. TECHNIQUE: AP radiograph of the chest, with upright and supine radiographs of the abdomen. FINDINGS: CHEST: Lungs: Clear. Cardiovascular: Normal size heart. No pulmonary vascular congestion. No aortic atherosclerotic calcification present Pleura: No pleural fluid. No pneumothorax. Other findings: Bipolar permanent cardiac pacemaker identified in situ in the interval. ABDOMEN AND PELVIS: Distended small large-bowel loops are identified with gas with very little if any retained fecal material scattered throughout the colon. Mild distention of the stomach is also noted with gas. Overall pattern likely reflects ileus rather than distal large bowel obstruction. No prominent free intra peritoneal gas collection or abnormal intra-abdominal calcifications. Clinical and potential imaging follow-up are advised. IMPRESSION: Unremarkable radiographs of chest and abdomen. No evidence of mechanical bowel obstruction.
--- NOTE | 2018-10-13 10:22 | CT ---
Date of service: 10/12/2018 PROCEDURE: CT Abdomen and Pelvis with contrast HISTORY: abd. pain COMPARISON: None available TECHNIQUE: Contrast dose: 100 mL Visipaque 320 IV Radiation dose: Total exam DLP = 384.87 mGy-cm. This CT exam was performed using one or more of the following dose reduction techniques: Automated exposure control, adjustment of the mA and/or kV according to patient size, and/or use of iterative reconstruction technique. FINDINGS: LOWER THORAX: No visible consolidation, pleural effusion, or pneumothorax. Partially imaged pacer wires. LIVER: Unremarkable. GALLBLADDER AND BILE DUCTS: Unremarkable. PANCREAS: Unremarkable. SPLEEN: Unremarkable. ADRENALS: Unremarkable. KIDNEYS AND URETERS: The kidneys enhance symmetrically. No hydronephrosis or obstructing calculus identified. VASCULATURE: No aortic aneurysm. No atherosclerotic calcification or mural plaque present. BOWEL: Stomach is nondistended. Lack of oral contrast limits evaluation for bowel pathology. Bowel loops appear within normal limits of caliber without evidence of obstruction. Fluid within nondilated small and large bowel loops may be seen in the setting of diarrheal illness. Small bowel wall thickening; correlate clinically for possibility of enteritis. APPENDIX: Right lower quadrant surgical clips suggestive of prior appendectomy. The appendix is not identified. No secondary signs of acute appendicitis. PERITONEUM: No significant free fluid. No definite free air. LYMPH NODES: No bulky adenopathy identified. BLADDER: Unremarkable. REPRODUCTIVE: Unremarkable. BONES: No acute osseous abnormality is detected. OTHER FINDINGS: None. IMPRESSION: Fluid within nondilated small and large bowel loops may be seen in the setting of diarrheal illness. Small bowel wall thickening; correlate clinically for possibility of enteritis. Preliminary impression was provided by [facility].
[2018-10-13] MEDS: Ciprofloxacin 400mg/200ml D5W 400 MG/200 ML BAG IVPB SCH ×2 (10:52→23:15)
[2018-10-13] MEDS: Enoxaparin 40 mg Syringe SC SCH (10:53)
[2018-10-13 11:52] LABS: BASO % 0.1 % (0.0-2.0); EOS # 0.1 K/uL (0.0-0.7); EOS % 1.2 % (0.0-4.0); LYMPH # 1.3 K/uL (1.0-4.3); LYMPH % 14.8 % (20.0-40.0); MEAN CELL VOLUME 89.6 fL (81.0-99.0); MEAN CORPUSCULAR HEMOGLOBIN 29.6 pg (27.0-31.0); MEAN PLATELET VOLUME 9.9 fL (7.2-11.7); MONO # 0.6 K/uL (0.0-0.8); MONO % 6.6 % (0.0-10.0); NEUT # 6.7 K/uL (1.8-7.0); NEUT % 77.3 % (50.0-75.0); NRBC % 0.1 % (0.0-2.0); RBC 4.73 Mil/uL (3.80-5.20); WHITE BLOOD COUNT 8.6 K/uL (4.8-10.8)
[2018-10-13 12:07] LABS: ALB/GLOB RATIO 1.4 (1.0-2.1); ALBUMIN 3.4 g/dL (3.5-5.0); ALT/SGPT 15 U/L (9-52); AST/SGOT 15 U/L (14-36); BLOOD UREA NITROGEN 10 mg/dL (7-17); CALCIUM 7.9 mg/dl (8.6-10.4); GFR NON-AFRICAN AMERICAN > 60
[2018-10-13] MEDS: Sodium Chloride 0.9% 1,000 ML IV SCH (14:15)
--- NOTE | 2018-10-13 14:29 | CP.PCM.CON ---
<Kishore Herman - Last Filed: 10/13/18 15:30> History of Present Illness - History of Present Illness History of Present Illness: PGY-4 GI Fellow Consult Note Pt is a 48 yo WF with DM2, Symptomatic Bradycardia (s/p Pacemaker), COPD, Gastritis presenting with complaint of nausea, vomiting, diarrhea and abdominal pain. She states that she was in her normal state of health when abruptly ar ound 1700 on 10/11/18 she began to have non-bloody, non-bilious emesis with "too many to count" loose watery diarrhea. She reports associated diffuse "gassy" pain. No clear precipitating or alleviating factors. She reports eating rice, beans and oxtail at a restaurant a few hours prior; however, she stated that her sister consumed her leftovers and did not develop any symptoms. She denied any recent travel, antibiotic use, change in diet, weight loss, dysphagia, melena nor hematochezia. She states that she had and EGD+CSPY in [facility] with Dr. Demetrius Wu (sp?) which revealed gastritis and 1 polyp (per pt report). 12 point ROS negative other than stated above MHx: See above SurgHx: Pacemaker, C-sections, Appendectomy, back injections Meds: Reviewed in chart FamHx: Denied GI probs/CRC SocHx: Denied x 3 All: NKDA Past Patient History - Infectious Disease Hx of Infectious Diseases: None - Past Medical History & Family History Past Medical History?: Yes - Past Social History Smoking Status: Never Smoked - CARDIAC Hx Cardiac Disorders: No - PULMONARY Hx Asthma: Yes Hx Bronchitis: Yes Hx Chronic Obstructive Pulmonary Disease (COPD): Yes - HEENT Hx HEENT Problems: No - RENAL Hx Chronic Kidney Disease: No - ENDOCRINE/METABOLIC Hx Endocrine Disorders: Yes Hx Diabetes Mellitus Type 2: Yes - HEMATOLOGICAL/ONCOLOGICAL Hx Blood Disorders: Yes Hx Shingles: Yes - INTEGUMENTARY Hx Dermatological Problems: Yes Other/Comment: HX: SHINGELS - MUSCULOSKELETAL/RHEUMATOLOGICAL Hx Arthritis: Yes Hx Falls: No - GASTROINTESTINAL Hx Gastrointestinal Disorders: No - GENITOURINARY/GYNECOLOGICAL Hx Genitourinary Disorders: No - PSYCHIATRIC Hx Substance Use: No - SURGICAL HISTORY Hx Appendectomy: Yes Hx Tonsillectomy: Yes - ANESTHESIA Hx Anesthesia: Yes Hx Anesthesia Reactions: No Hx Malignant Hyperthermia: No Meds Allergies/Adverse Reactions: Allergies Allergy/AdvReac Type Severity Reaction Status Date / Time No Known Allergies Allergy Verified 10/12/18 18:56 - Medications Medications: Current Medications Enoxaparin Sodium (Lovenox) 40 mg SC DAILY [facility] Last Admin: 10/13/18 10:53 Dose: 40 mg Famotidine (Pepcid) 20 mg IVP Q12H [facility] Last Admin: 10/13/18 10:52 Dose: 20 mg Ciprofloxacin (Cipro 400mg/200ml Dsw) 400 mg in 200 mls @ 133 mls/hr IVPB Q12H [facility]; Protocol Last Admin: 10/13/18 10:52 Dose: 133 mls/hr Metronidazole (Flagyl) 500 mg in 100 mls @ 100 mls/hr IVPB Q8H [facility]; Protocol Last Admin: 10/13/18 14:14 Dose: 100 mls/hr Sodium Chloride (Sodium Chloride 0.9%) 1,000 mls @ 80 mls/hr IV .[id number] [facility] Last Admin: 10/13/18 14:15 Dose: 80 mls/hr Influenza Virus Vaccine (Flucelvax Quad 8307-9107 Syr) 60 mcg IM .ONCE ONE Stop: 10/16/18 10:01 Insulin Human Regular (Novolin R) 0 unit SC [facility]; Protocol Last Admin: 10/13/18 12:20 Dose: 1 unit Metformin HCl (Glucophage) 1,000 mg PO BID [facility] Last Admin: 10/13/18 10:53 Dose: Not Given Pneumococcal Polyvalent Vaccine (Pneumovax 23 Vaccine) 0.5 ml IM .ONCE ONE Stop: 10/16/18 10:01 Sitagliptin Phosphate (Januvia) 100 mg PO DAILY [facility] Last Admin: 10/13/18 10:51 Dose: 100 mg Physical Exam - Constitutional Appears: Well, No Acute Distress - Head Exam Head Exam: ATRAUMATIC, NORMAL INSPECTION - Eye Exam Eye Exam: EOMI. absent: Scleral icterus - ENT Exam ENT Exam: Mucous Membranes Moist. absent: Mucous Membranes Dry - Respiratory Exam Respiratory Exam: Wheezes (faint scattered), NORMAL BREATHING PATTERN. absent: Accessory Muscle Use, Respiratory Distress - Cardiovascular Exam Cardiovascular Exam: REGULAR RHYTHM, RRR - GI/Abdominal Exam GI & Abdominal Exam: Normal Bowel Sounds, Soft, Tenderness (diffusely ttp w/o guarding but worst in LLQ). absent: Bruit, Diminished Bowel Sounds, Distended, Firm, Guarding, Hernia, Mass, Organomegaly, Pulsatile Mass, Rebound, Rigid - Rectal Exam Rectal Exam: Deferred - Extremities Exam Extremities exam: Positive for: normal inspection. Negative for: pedal edema - Neurological Exam Neurological exam: Alert, CN II-XII Intact, Oriented x3 - Psychiatric Exam Psychiatric exam: Normal Affect, Normal Mood - Skin Skin Exam: Normal Color, Warm Results - Vital Signs Recent Vital Signs: Last Vital Signs Temp 98.2 F 10/13/18 07:39 Pulse 72 10/13/18 07:39 Resp 20 10/13/18 07:39 BP 108/72 10/13/18 07:39 Pulse Ox 99 10/13/18 07:39 - Labs Result Diagrams: 10/13/18 11:35 10/13/18 11:35 Labs: Laboratory Results - last 24 hr 10/12/18 10/12/18 10/12/18 19:52 19:52 20:44 WBC 12.0 H D RBC 5.65 H Hgb 16.6 H D Hct 51.2 H MCV 90.5 MCH 29.3 MCHC 32.3 L RDW 14.6 H Plt Count 222 MPV 10.3 Neut % (Auto) 86.8 H Lymph % (Auto) 7.9 L Hancock % (Auto) 5.0 Eos % (Auto) 0.1 Baso % (Auto) 0.2 Neut # (Auto) 10.4 H Lymph # (Auto) 0.9 L Hancock # (Auto) 0.6 Eos # (Auto) 0.0 Baso # (Auto) 0.0 Neutrophils % (Manual) 82 H Band Neutrophils % 6 H Lymphocytes % (Manual) 9 L Monocytes % (Manual) 3 Platelet Estimate Normal Sodium 136 Potassium 4.5 Chloride 105 Carbon Dioxide 15 L Anion Gap 20 BUN 16 Creatinine 0.6 L Est GFR ( Amer) > 60 Est GFR (Non-Af Amer) > 60 POC Glucose (mg/dL) Random Glucose 277 H D Calcium 9.6 Total Bilirubin 0.8 AST 39 H D ALT 7 L D Alkaline Phosphatase 93 Troponin I 0.0170 Total Protein 9.0 H Albumin 5.4 H Globulin 3.6 Albumin/Globulin Ratio 1.5 Lipase 47 Urine Color Yellow Urine Clarity Clear Urine pH 6.0 Ur Specific Newcomb 1.042 H Urine Protein 2+ H Urine Glucose (UA) 3+ H Urine Ketones Trace Urine Blood Negative Urine Nitrate Negative Urine Bilirubin Negative Urine Urobilinogen Normal Ur Leukocyte Esterase Neg Urine WBC (Auto) 1 Urine RBC (Auto) 1 Ur Squamous Epith Cells 1 10/13/18 10/13/18 10/13/18 07:09 11:09 11:35 WBC 8.6 RBC 4.73 Hgb 14.0 D Hct 42.4 MCV 89.6 MCH 29.6 MCHC 33.0 RDW 15.0 H Plt Count 193 MPV 9.9 Neut % (Auto) 77.3 H Lymph % (Auto) 14.8 L Hancock % (Auto) 6.6 Eos % (Auto) 1.2 Baso % (Auto) 0.1 Neut # (Auto) 6.7 Lymph # (Auto) 1.3 Hancock # (Auto) 0.6 Eos # (Auto) 0.1 Baso # (Auto) 0.0 Neutrophils % (Manual) Band Neutrophils % Lymphocytes % (Manual) Monocytes % (Manual) Platelet Estimate Sodium Potassium Chloride Carbon Dioxide Anion Gap BUN Creatinine Est GFR ( Amer) Est GFR (Non-Af Amer) POC Glucose (mg/dL) 216 H 186 H Random Glucose Calcium Total Bilirubin AST ALT Alkaline Phosphatase Troponin I Total Protein Albumin Globulin Albumin/Globulin Ratio Lipase Urine Color Urine Clarity Urine pH Ur Specific Newcomb Urine Protein Urine Glucose (UA) Urine Ketones Urine Blood Urine Nitrate Urine Bilirubin Urine Urobilinogen Ur Leukocyte Esterase Urine WBC (Auto) Urine RBC (Auto) Ur Squamous Epith Cells 10/13/18 11:35 WBC RBC Hgb Hct MCV MCH MCHC RDW Plt Count MPV Neut % (Auto) Lymph % (Auto) Hancock % (Auto) Eos % (Auto) Baso % (Auto) Neut # (Auto) Lymph # (Auto) Hancock # (Auto) Eos # (Auto) Baso # (Auto) Neutrophils % (Manual) Band Neutrophils % Lymphocytes % (Manual) Monocytes % (Manual) Platelet Estimate Sodium 134 Potassium 3.7 Chloride 106 Carbon Dioxide 20 L Anion Gap 12 BUN 10 Creatinine 0.6 L Est GFR ( Amer) > 60 Est GFR (Non-Af Amer) > 60 POC Glucose (mg/dL) Random Glucose 183 H D Calcium 7.9 L Total Bilirubin 0.5 AST 15 ALT 15 Alkaline Phosphatase 67 Troponin I Total Protein 5.8 L Albumin 3.4 L D Globulin 2.4 Albumin/Globulin Ratio 1.4 Lipase Urine Color Urine Clarity Urine pH Ur Specific Newcomb Urine Protein Urine Glucose (UA) Urine Ketones Urine Blood Urine Nitrate Urine Bilirubin Urine Urobilinogen Ur Leukocyte Esterase Urine WBC (Auto) Urine RBC (Auto) Ur Squamous Epith Cells Assessment & Plan - Assessment and Plan (Free Text) Assessment: 48 yo WF with DM2, COPD, Symptomatic Bradycardia (s/p pacemaker) presenting with nausea, vomiting, abd pain and diarrhea. # Nausea, vomiting, abd pain and diarrhea: Acute. No signs of bleeding in deysi sis nor stool. Suspect related to acute food poising with viral or bacterial gastroenteritis/colitis given acute onset of symptoms. CT findings with enterocolitis. Stooling already improve to 1 BM thus far on 10/13. # Endo Hx: EGD+CSPY in ~2016 with gastritis (unknown details) and 1 polyp per pt report. Plan: - Clear Liq diet, ADAT - F/u C diff --- If negative, can use loperamide - Short course of Abx - Supportive care Pt seen and examined with Dr. Earl. Please see attestation for further recs/changes. <Eder Earl - Last Filed: 10/13/18 16:46> Meds - Medications Medications: Current Medications Enoxaparin Sodium (Lovenox) 40 mg SC DAILY [facility] Last Admin: 10/13/18 10:53 Dose: 40 mg Famotidine (Pepcid) 20 mg IVP Q12H [facility] Last Admin: 10/13/18 10:52 Dose: 20 mg Ciprofloxacin (Cipro 400mg/200ml Dsw) 400 mg in 200 mls @ 133 mls/hr IVPB Q12H [facility]; Protocol Last Admin: 10/13/18 10:52 Dose: 133 mls/hr Metronidazole (Flagyl) 500 mg in 100 mls @ 100 mls/hr IVPB Q8H [facility]; Protocol Last Admin: 10/13/18 14:14 Dose: 100 mls/hr Sodium Chloride (Sodium Chloride 0.9%) 1,000 mls @ 80 mls/hr IV .[id number] [facility] Last Admin: 10/13/18 14:15 Dose: 80 mls/hr Influenza Virus Vaccine (Flucelvax Quad [id number] Syr) 60 mcg IM .ONCE ONE Stop: 10/16/18 10:01 Insulin Human Regular (Novolin R) 0 unit SC ACHS [facility]; Protocol Last Admin: 10/13/18 16:14 Dose: Not Given Metformin HCl (Glucophage) 1,000 mg PO BID [facility] Last Admin: 10/13/18 10:53 Dose: Not Given Pneumococcal Polyvalent Vaccine (Pneumovax 23 Vaccine) 0.5 ml IM .ONCE ONE Stop: 10/16/18 10:01 Sitagliptin Phosphate (Januvia) 100 mg PO DAILY [facility] Last Admin: 10/13/18 10:51 Dose: 100 mg Results - Vital Signs Recent Vital Signs: Last Vital Signs Temp 98.2 F 10/13/18 07:39 Pulse 72 10/13/18 07:39 Resp 20 10/13/18 07:39 BP 108/72 10/13/18 07:39 Pulse Ox 99 10/13/18 07:39 - Labs Result Diagrams: 10/13/18 11:35 10/13/18 11:35 Labs: Laboratory Results - last 24 hr 10/12/18 10/12/18 10/12/18 19:52 19:52 20:44 WBC 12.0 H D RBC 5.65 H Hgb 16.6 H D Hct 51.2 H MCV 90.5 MCH 29.3 MCHC 32.3 L RDW 14.6 H Plt Count 222 MPV 10.3 Neut % (Auto) 86.8 H Lymph % (Auto) 7.9 L Hancock % (Auto) 5.0 Eos % (Auto) 0.1 Baso % (Auto) 0.2 Neut # (Auto) 10.4 H Lymph # (Auto) 0.9 L Hancock # (Auto) 0.6 Eos # (Auto) 0.0 Baso # (Auto) 0.0 Neutrophils % (Manual) 82 H Band Neutrophils % 6 H Lymphocytes % (Manual) 9 L Monocytes % (Manual) 3 Platelet Estimate Normal Sodium 136 Potassium 4.5 Chloride 105 Carbon Dioxide 15 L Anion Gap 20 BUN 16 Creatinine 0.6 L Est GFR ( Amer) > 60 Est GFR (Non-Af Amer) > 60 POC Glucose (mg/dL) Random Glucose 277 H D Calcium 9.6 Total Bilirubin 0.8 AST 39 H D ALT 7 L D Alkaline Phosphatase 93 Troponin I 0.0170 Total Protein 9.0 H Albumin 5.4 H Globulin 3.6 Albumin/Globulin Ratio 1.5 Lipase 47 Urine Color Yellow Urine Clarity Clear Urine pH 6.0 Ur Specific Newcomb 1.042 H Urine Protein 2+ H Urine Glucose (UA) 3+ H Urine Ketones Trace Urine Blood Negative Urine Nitrate Negative Urine Bilirubin Negative Urine Urobilinogen Normal Ur Leukocyte Esterase Neg Urine WBC (Auto) 1 Urine RBC (Auto) 1 Ur Squamous Epith Cells 1 10/13/18 10/13/18 10/13/18 07:09 11:09 11:35 WBC 8.6 RBC 4.73 Hgb 14.0 D Hct 42.4 MCV 89.6 MCH 29.6 MCHC 33.0 RDW 15.0 H Plt Count 193 MPV 9.9 Neut % (Auto) 77.3 H Lymph % (Auto) 14.8 L Hancock % (Auto) 6.6 Eos % (Auto) 1.2 Baso % (Auto) 0.1 Neut # (Auto) 6.7 Lymph # (Auto) 1.3 Hancock # (Auto) 0.6 Eos # (Auto) 0.1 Baso # (Auto) 0.0 Neutrophils % (Manual) Band Neutrophils % Lymphocytes % (Manual) Monocytes % (Manual) Platelet Estimate Sodium Potassium Chloride Carbon Dioxide Anion Gap BUN Creatinine Est GFR ( Amer) Est GFR (Non-Af Amer) POC Glucose (mg/dL) 216 H 186 H Random Glucose Calcium Total Bilirubin AST ALT Alkaline Phosphatase Troponin I Total Protein Albumin Globulin Albumin/Globulin Ratio Lipase Urine Color Urine Clarity Urine pH Ur Specific Newcomb Urine Protein Urine Glucose (UA) Urine Ketones Urine Blood Urine Nitrate Urine Bilirubin Urine Urobilinogen Ur Leukocyte Esterase Urine WBC (Auto) Urine RBC (Auto) Ur Squamous Epith Cells 10/13/18 10/13/18 11:35 16:05 WBC RBC Hgb Hct MCV MCH MCHC RDW Plt Count MPV Neut % (Auto) Lymph % (Auto) Hancock % (Auto) Eos % (Auto) Baso % (Auto) Neut # (Auto) Lymph # (Auto) Hancock # (Auto) Eos # (Auto) Baso # (Auto) Neutrophils % (Manual) Band Neutrophils % Lymphocytes % (Manual) Monocytes % (Manual) Platelet Estimate Sodium 134 Potassium 3.7 Chloride 106 Carbon Dioxide 20 L Anion Gap 12 BUN 10 Creatinine 0.6 L Est GFR ( Amer) > 60 Est GFR (Non-Af Amer) > 60 POC Glucose (mg/dL) 129 H Random Glucose 183 H D Calcium 7.9 L Total Bilirubin 0.5 AST 15 ALT 15 Alkaline Phosphatase 67 Troponin I Total Protein 5.8 L Albumin 3.4 L D Globulin 2.4 Albumin/Globulin Ratio 1.4 Lipase Urine Color Urine Clarity Urine pH Ur Specific Newcomb Urine Protein Urine Glucose (UA) Urine Ketones Urine Blood Urine Nitrate Urine Bilirubin Urine Urobilinogen Ur Leukocyte Esterase Urine WBC (Auto) Urine RBC (Auto) Ur Squamous Epith Cells Attending/Attestation - Attestation I have personally seen and examined this patient.: Yes I have fully participated in the care of the patient.: Yes I have reviewed all pertinent clinical information: Yes Notes (Text): 10/13/18 16:42 I have seen and examined patient with GI fellow. Agree with above documentation with the following additions. In brief, this is a 48 year old female with history of DM, COPD, bradycardia s/p PPM who presents to hospital with complaint of sudden onset abdominal pain, nausea, vomiting, diarrhea which began 2 days ago. Prior to this she was in usual state of health. She claims symptoms began following consumption of oxtail, beans, rice at restaurant. She notes diffuse epigastric pain, 7/10 intensity radiating to umbilical region associated with multiple episodes of non-bloody emesis and diarrhea. She denies fever/chills, weight loss, rectal bleeding, sick contacts, recent antibiotic use, or travel. She apparently had an EGD/colonoscopy in [address] Orozco which showed gastritis and a benign polyp as per patient. DM COPD Bradycardia s/p PPM Abdominal pain, vomiting, diarrhea - acute gastroenteritis CT imaging reviewed by me showing small bowel wall thickening consistent with enteritis - Liquid diet as tolerated - Obtain stool studies - Continue with supportive care, IVF hydration - Anti-emetic therapy PRN - Will continue to monitor patient clinical course
--- NOTE | 2018-10-13 22:03 | CP.PCM.HP ---
Present on Admission - Present on Admission Any Indicators Present on Admission: No Past Patient History - Infectious Disease Hx of Infectious Diseases: None - Past Medical History & Family History Past Medical History?: Yes - Past Social History Smoking Status: Never Smoked - CARDIAC Hx Cardiac Disorders: No - PULMONARY Hx Asthma: Yes Hx Bronchitis: Yes Hx Chronic Obstructive Pulmonary Disease (COPD): Yes - HEENT Hx HEENT Problems: No - RENAL Hx Chronic Kidney Disease: No - ENDOCRINE/METABOLIC Hx Endocrine Disorders: Yes Hx Diabetes Mellitus Type 2: Yes - HEMATOLOGICAL/ONCOLOGICAL Hx Blood Disorders: Yes Hx Shingles: Yes - INTEGUMENTARY Hx Dermatological Problems: Yes Other/Comment: HX: SHINGELS - MUSCULOSKELETAL/RHEUMATOLOGICAL Hx Arthritis: Yes Hx Falls: No - GASTROINTESTINAL Hx Gastrointestinal Disorders: No - GENITOURINARY/GYNECOLOGICAL Hx Genitourinary Disorders: No - PSYCHIATRIC Hx Substance Use: No - SURGICAL HISTORY Hx Appendectomy: Yes Hx Tonsillectomy: Yes - ANESTHESIA Hx Anesthesia: Yes Hx Anesthesia Reactions: No Hx Malignant Hyperthermia: No Meds Allergies/Adverse Reactions: Allergies Allergy/AdvReac Type Severity Reaction Status Date / Time No Known Allergies Allergy Verified 10/12/18 18:56 Results - Vital Signs Recent Vital Signs: Last Vital Signs Temp 97.5 F L 10/13/18 15:05 Pulse 84 10/13/18 15:05 Resp 20 10/13/18 15:05 BP 91/60 L 10/13/18 15:05 Pulse Ox 99 10/13/18 15:05 - Labs Result Diagrams: 10/13/18 11:35 10/13/18 11:35 Labs: Laboratory Results - last 24 hr 10/13/18 10/13/18 10/13/18 07:09 11:09 11:35 WBC 8.6 RBC 4.73 Hgb 14.0 D Hct 42.4 MCV 89.6 MCH 29.6 MCHC 33.0 RDW 15.0 H Plt Count 193 MPV 9.9 Neut % (Auto) 77.3 H Lymph % (Auto) 14.8 L Coleman % (Auto) 6.6 Eos % (Auto) 1.2 Baso % (Auto) 0.1 Neut # (Auto) 6.7 Lymph # (Auto) 1.3 Coleman # (Auto) 0.6 Eos # (Auto) 0.1 Baso # (Auto) 0.0 Sodium Potassium Chloride Carbon Dioxide Anion Gap BUN Creatinine Est GFR ( Amer) Est GFR (Non-Af Amer) POC Glucose (mg/dL) 216 H 186 H Random Glucose Calcium Total Bilirubin AST ALT Alkaline Phosphatase Total Protein Albumin Globulin Albumin/Globulin Ratio 10/13/18 10/13/18 10/13/18 11:35 16:05 21:24 WBC RBC Hgb Hct MCV MCH MCHC RDW Plt Count MPV Neut % (Auto) Lymph % (Auto) Coleman % (Auto) Eos % (Auto) Baso % (Auto) Neut # (Auto) Lymph # (Auto) Coleman # (Auto) Eos # (Auto) Baso # (Auto) Sodium 134 Potassium 3.7 Chloride 106 Carbon Dioxide 20 L Anion Gap 12 BUN 10 Creatinine 0.6 L Est GFR ( Amer) > 60 Est GFR (Non-Af Amer) > 60 POC Glucose (mg/dL) 129 H 194 H Random Glucose 183 H D Calcium 7.9 L Total Bilirubin 0.5 AST 15 ALT 15 Alkaline Phosphatase 67 Total Protein 5.8 L Albumin 3.4 L D Globulin 2.4 Albumin/Globulin Ratio 1.4
[2018-10-14] MEDS: Sodium Chloride 0.9% 1,000 ML IV SCH ×3 (01:15→13:57)
--- NOTE | 2018-10-14 04:29 | HP ---
CHIEF COMPLAINT: Abdominal pain, nausea, vomiting for two days. HISTORY OF PRESENT ILLNESS: This is a 48-year-old female with history of heart block with a pacemaker. Other than that, she is medically stable. She ate oxtail, rice and adams yesterday and she started having loose watery diarrhea, fever, chills, nausea, and one episode of vomiting. She had body aches, tiredness, anorexia. She had frequency of urination, dry mouth, dizziness, weakness, difficulty walking, fatigue, and malaise. She denies any dysuria, hematuria, pyuria. She denies any sneezing, itchy eyes, or itchy nose. She denies any hip pain, back pain, neck pain. She denies any tingling, numbness, or paresthesia. She denies any history of diabetes. She denies any history of head injury, fall, seizure-like activity, loss of consciousness. PAST MEDICAL HISTORY: Heart block, status post pacemaker. SOCIAL HISTORY: Nonsmoker, non-EtOH user. CURRENT MEDICATION: None. PHYSICAL EXAMINATION: GENERAL: A middle-aged female, in no distress. VITAL SIGNS: Blood pressure 110/81, pulse 98, respiratory rate 17, temperature 98.9. SKIN: Dry. Good turgor. No bruises. No purpura. No petechiae. HEENT: Atraumatic and normocephalic. Negative pallor. Negative jaundice. Extraocular movements are intact. NECK: Supple. No JVD. No lymph node. No thyromegaly. CHEST WALL: Bilateral symmetrical expansion. LUNGS: Clear. No rales. No rhonchi. CVS: S1 and S2, regular. No heave. No thrill. ABDOMEN: Soft and nontender. Bowel sounds are positive. EXTREMITIES: No clubbing, cyanosis, or edema. [employer]: Awake, alert, and oriented x3. ASSESSMENT: 1. Acute gastroenteritis. 2. Dehydration. 3. Rule out diabetes. PLAN: Admit. Detailed orders are written. Seen and examined. Jeevan Salas MD
[2018-10-14] MEDS: metroNIDAZOLE IV 500 mg/100 ml 500 MG/100 ML BAG IVPB SCH ×3 (05:28→21:51)
--- NOTE | 2018-10-14 06:46 | CP.PCM.PN ---
<Kishore Herman - Last Filed: 10/14/18 07:53> Subjective - Date & Time of Evaluation Date of Evaluation: 10/14/18 Time of Evaluation: 07:15 - Subjective Subjective: PGY-4 GI Fellow Prog Note Pt lying in in bed when seen this AM. States that she still has some abd discomfort but is tolerating liquid diet without vomiting, though with some nausea and sensation of reflux. States 2 liquid BMs in last 24 hrs. 5 point ROS negative other than stated above Objective - Vital Signs/Intake and Output Vital Signs (last 24 hours): Temp Pulse Resp BP Pulse Ox 97.5 F L 84 20 91/60 L 99 10/13/18 15:05 10/13/18 15:05 10/13/18 15:05 10/13/18 15:05 10/13/18 15:05 Intake and Output: 10/13/18 10/14/18 18:59 06:59 Intake Total 660 Balance 660 - Medications Medications: Current Medications Enoxaparin Sodium (Lovenox) 40 mg SC DAILY [facility] Last Admin: 10/13/18 10:53 Dose: 40 mg Famotidine (Pepcid) 20 mg IVP Q12H [facility] Last Admin: 10/13/18 21:32 Dose: 20 mg Ciprofloxacin (Cipro 400mg/200ml Dsw) 400 mg in 200 mls @ 133 mls/hr IVPB Q12H [facility]; Protocol Last Admin: 10/13/18 23:15 Dose: 133 mls/hr Metronidazole (Flagyl) 500 mg in 100 mls @ 100 mls/hr IVPB Q8H [facility]; Protocol Last Admin: 10/14/18 05:28 Dose: 100 mls/hr Sodium Chloride (Sodium Chloride 0.9%) 1,000 mls @ 80 mls/hr IV .[id number] [facility] Last Admin: 10/14/18 05:29 Dose: 80 mls/hr Influenza Virus Vaccine (Flucelvax Quad 1712-9615 Syr) 60 mcg IM .ONCE ONE Stop: 10/16/18 10:01 Insulin Human Regular (Novolin R) 0 unit SC ACHS [facility]; Protocol Last Admin: 10/13/18 21:28 Dose: Not Given Metformin HCl (Glucophage) 1,000 mg PO BID [facility] Last Admin: 10/13/18 17:39 Dose: Not Given Pneumococcal Polyvalent Vaccine (Pneumovax 23 Vaccine) 0.5 ml IM .ONCE ONE Stop: 10/16/18 10:01 Sitagliptin Phosphate (Januvia) 100 mg PO DAILY [facility] Last Admin: 10/13/18 10:51 Dose: 100 mg - Labs Labs: 10/13/18 11:35 10/13/18 11:35 - Constitutional Appears: Well, No Acute Distress - Head Exam Head Exam: ATRAUMATIC, NORMAL INSPECTION - Eye Exam Eye Exam: EOMI. absent: Scleral icterus - ENT Exam ENT Exam: Mucous Membranes Moist. absent: Mucous Membranes Dry - Respiratory Exam Respiratory Exam: NORMAL BREATHING PATTERN. absent: Accessory Muscle Use, Respiratory Distress - GI/Abdominal Exam GI & Abdominal Exam: Soft, Tenderness (mildly ttp in lower quadrants w/o guarding), Normal Bowel Sounds. absent: Bruit, Distended, Firm, Guarding, Rigid, Mass, Organomegaly, Pulsatile Mass Assessment and Plan - Assessment and Plan (Free Text) Assessment: 48 yo WF with DM2, COPD, Symptomatic Bradycardia (s/p pacemaker) presenting with nausea, vomiting, abd pain and diarrhea. # Acute nausea, vomiting, abd pain and diarrhea: Improved. No signs of bleeding in emesis nor stool. Suspect related to acute food poising with viral or bacterial gastroenteritis/colitis given acute onset of symptoms. CT findings with enterocolitis. Stooling already improved. # Endo Hx: EGD+CSPY in ~2017 with gastritis (unknown details) and 1 polyp per pt report. Plan: - Adv diet to low residue lunch - F/u C diff --- If negative, can use loperamide - Short course of Abx - Supportive care Pt seen and examined with Dr. Earl. Please see attestation for further recs/changes. <Eder Earl - Last Filed: 10/14/18 08:33> Objective - Vital Signs/Intake and Output Vital Signs (last 24 hours): Temp Pulse Resp BP Pulse Ox 98.2 F 80 20 100/60 99 10/14/18 00:35 10/14/18 00:35 10/14/18 00:35 10/14/18 00:35 10/14/18 00:35 Intake and Output: 10/14/18 10/14/18 06:59 18:59 Intake Total 660 880 Balance 660 880 - Medications Medications: Current Medications Enoxaparin Sodium (Lovenox) 40 mg SC DAILY [facility] Last Admin: 10/13/18 10:53 Dose: 40 mg Famotidine (Pepcid) 20 mg IVP Q12H [facility] Last Admin: 10/13/18 21:32 Dose: 20 mg Ciprofloxacin (Cipro 400mg/200ml Dsw) 400 mg in 200 mls @ 133 mls/hr IVPB Q12H [facility]; Protocol Last Admin: 10/13/18 23:15 Dose: 133 mls/hr Metronidazole (Flagyl) 500 mg in 100 mls @ 100 mls/hr IVPB Q8H [facility]; Protocol Last Admin: 10/14/18 05:28 Dose: 100 mls/hr Sodium Chloride (Sodium Chloride 0.9%) 1,000 mls @ 80 mls/hr IV .[id number] [facility] Last Admin: 10/14/18 05:29 Dose: 80 mls/hr Influenza Virus Vaccine (Flucelvax Quad 0041-3222 Syr) 60 mcg IM .ONCE ONE Stop: 10/16/18 10:01 Insulin Human Regular (Novolin R) [address] [facility]; Protocol Last Admin: 10/13/18 21:28 Dose: Not Given Metformin HCl (Glucophage) 1,000 mg PO BID [facility] Last Admin: 10/13/18 17:39 Dose: Not Given Pneumococcal Polyvalent Vaccine (Pneumovax 23 Vaccine) 0.5 ml IM .ONCE ONE Stop: 10/16/18 10:01 Sitagliptin Phosphate (Januvia) 100 mg PO DAILY [facility] Last Admin: 10/13/18 10:51 Dose: 100 mg - Labs Labs: 10/14/18 07:41 10/14/18 07:41 Attending/Attestation - Attestation I have personally seen and examined this patient.: Yes I have fully participated in the care of the patient.: Yes I have reviewed all pertinent clinical information, including history, physical exam and plan: Yes Notes (Text): 10/14/18 08:29 I have seen and examined patient with GI fellow. No acute events overnight, she reports one small bowel movement overnight. She does endorse ongoing generalized abdominal discomfort but is tolerating PO liquids without difficulty. DM COPD Bradycardia s/p PPM Abdominal pain, vomiting - resolving gastroenteritis - Advance diet as tolerated - Awaiting results of stool studies - Continue with antibiotic therapy as per medical team - If patient tolerating PO diet can likely be discharged home with subsequent outpatient follow up. Will continue to monitor patient clinical course.
[2018-10-14 07:54] LABS: BASO % 0.1 % (0.0-2.0); EOS # 0.2 K/uL (0.0-0.7); EOS % 2.8 % (0.0-4.0); HEMOGLOBIN 14.4 g/dL (11.0-16.0); LYMPH # 1.4 K/uL (1.0-4.3); LYMPH % 19.5 % (20.0-40.0); MEAN CELL VOLUME 90.2 fL (81.0-99.0); MEAN CORPUSCULAR HEMOGLOBIN 30.2 pg (27.0-31.0); MEAN CORPUSCULAR HGB CONC 33.5 g/dL (33.0-37.0); MEAN PLATELET VOLUME 10.2 fL (7.2-11.7); MONO # 0.6 K/uL (0.0-0.8); MONO % 9.1 % (0.0-10.0); NEUT # 4.8 K/uL (1.8-7.0); NEUT % 68.5 % (50.0-75.0); NRBC % 0.1 % (0.0-2.0); RBC 4.75 Mil/uL (3.80-5.20); RED CELL DISTRIBUTION WIDTH 14.6 % (11.5-14.5)
[2018-10-14 08:18] LABS: BLOOD UREA NITROGEN 3 mg/dL (7-17); CALCIUM 8.8 mg/dl (8.6-10.4); GFR NON-AFRICAN AMERICAN > 60
[2018-10-14] MEDS: (Novolin R) Insulin Human Regular 100 units/ml vial SC SCH ×4 (08:37→22:19)
[2018-10-14] MEDS: Enoxaparin 40 mg Syringe SC SCH (09:30)
[2018-10-14] MEDS: Ciprofloxacin 400mg/200ml D5W 400 MG/200 ML BAG IVPB SCH ×2 (12:06→23:41)
[2018-10-14 16:13] VITALS: O2SAT 98
--- NOTE | 2018-10-14 21:41 | CP.PCM.PN ---
Subjective - Date & Time of Evaluation Date of Evaluation: 10/14/18 Time of Evaluation: 11:00 - Subjective Subjective: dictated Objective - Vital Signs/Intake and Output Vital Signs (last 24 hours): Temp Pulse Resp BP Pulse Ox 98.1 F 59 L 20 121/79 98 10/14/18 16:00 10/14/18 16:00 10/14/18 16:00 10/14/18 16:00 10/14/18 16:00 Intake and Output: 10/14/18 10/15/18 18:59 06:59 Intake Total 2320 Balance 2320 - Medications Medications: Current Medications Enoxaparin Sodium (Lovenox) 40 mg SC DAILY [facility] Last Admin: 10/14/18 09:30 Dose: 40 mg Famotidine (Pepcid) 20 mg IVP Q12H [facility] Last Admin: 10/14/18 09:30 Dose: 20 mg Ciprofloxacin (Cipro 400mg/200ml Dsw) 400 mg in 200 mls @ 133 mls/hr IVPB Q12H [facility]; Protocol Last Admin: 10/14/18 12:06 Dose: 133 mls/hr Metronidazole (Flagyl) 500 mg in 100 mls @ 100 mls/hr IVPB Q8H [facility]; Protocol Last Admin: 10/14/18 13:29 Dose: 100 mls/hr Sodium Chloride (Sodium Chloride 0.9%) 1,000 mls @ 80 mls/hr IV .[id number] [facility] Last Admin: 10/14/18 13:57 Dose: Not Given Influenza Virus Vaccine (Flucelvax Quad [id number] Syr) 60 mcg IM .ONCE ONE Stop: 10/16/18 10:01 Insulin Human Regular (Novolin R) 0 unit SC ACHS [facility]; Protocol Last Admin: 10/14/18 18:17 Dose: 1 unit Metformin HCl (Glucophage) 1,000 mg PO BID [facility] Last Admin: 10/14/18 17:40 Dose: Not Given Pneumococcal Polyvalent Vaccine (Pneumovax 23 Vaccine) 0.5 ml IM .ONCE ONE Stop: 10/16/18 10:01 Sitagliptin Phosphate (Januvia) 100 mg PO DAILY [facility] Last Admin: 10/14/18 09:30 Dose: 100 mg - Labs Labs: 10/14/18 07:41 10/14/18 07:41
--- NOTE | 2018-10-15 01:54 | PN ---
DATE: 10/14/2018 SUBJECTIVE: The patient is feeling better. She has mild nausea. Decreased diarrhea. Decreased abdominal pain. No fever. No chills. No dizziness. PHYSICAL EXAMINATION: VITAL SIGNS: Blood pressure 121/79, pulse 59, respiratory rate 20, and temperature 98.1. LUNGS: Clear. CARDIOVASCULAR: S1 and S2, regular. ABDOMEN: Soft. ASSESSMENT: 1. Dehydration. 2. New-onset diabetes. 3. Gastroenteritis. PLAN: Continue medical management. Monitor the patient. Jeevan Salas MD
[2018-10-15] MEDS: Sodium Chloride 0.9% 1,000 ML IV SCH (03:00)
[2018-10-15] MEDS: metroNIDAZOLE IV 500 mg/100 ml 500 MG/100 ML BAG IVPB SCH ×2 (05:29→13:38)
--- NOTE | 2018-10-15 07:37 | CP.PCM.PN ---
<MistylaurySujathaantonio - Last Filed: 10/15/18 11:26> Subjective - Date & Time of Evaluation Date of Evaluation: 10/15/18 Time of Evaluation: 08:35 - Subjective Subjective: PGY-4 GI Fellow Prog Note Pt lying in bed when seen this AM. States that she is tolerating small amount of more regular diet, stating that "she wants to take it slow." This AM she stated that she has only had 2 small loose BMs, but when rounding later in the day she had 4 more small BMs. Abd pain still present but slowly improving. 5 point ROS negative other than stated above Objective - Vital Signs/Intake and Output Vital Signs (last 24 hours): Temp Pulse Resp BP Pulse Ox 97.9 F 62 20 103/64 98 10/14/18 23:00 10/14/18 23:00 10/14/18 23:00 10/14/18 23:00 10/14/18 23:00 Intake and Output: 10/15/18 10/15/18 06:59 18:59 Intake Total 2100 Balance 2100 - Medications Medications: Current Medications Enoxaparin Sodium (Lovenox) 40 mg SC DAILY [facility] Last Admin: 10/14/18 09:30 Dose: 40 mg Famotidine (Pepcid) 20 mg IVP Q12H [facility] Last Admin: 10/14/18 21:51 Dose: 20 mg Ciprofloxacin (Cipro 400mg/200ml Dsw) 400 mg in 200 mls @ 133 mls/hr IVPB Q12H [facility]; Protocol Last Admin: 10/14/18 23:41 Dose: 133 mls/hr Metronidazole (Flagyl) 500 mg in 100 mls @ 100 mls/hr IVPB Q8H [facility]; Protocol Last Admin: 10/15/18 05:29 Dose: 100 mls/hr Sodium Chloride (Sodium Chloride 0.9%) 1,000 mls @ 80 mls/hr IV .[id number] [facility] Last Admin: 10/15/18 03:00 Dose: 80 mls/hr Influenza Virus Vaccine (Flucelvax Quad 8063-2107 Syr) 60 mcg IM .ONCE ONE Stop: 10/16/18 10:01 Insulin Human Regular (Novolin R) 0 unit SC ACHS [facility]; Protocol Last Admin: 10/14/18 22:19 Dose: Not Given Loperamide HCl (Imodium) 2 mg PO Q4 PRN PRN Reason: Diarrhea Metformin HCl (Glucophage) 1,000 mg PO BID [facility] Last Admin: 10/14/18 17:40 Dose: Not Given Pneumococcal Polyvalent Vaccine (Pneumovax 23 Vaccine) 0.5 ml IM .ONCE ONE Stop: 10/16/18 10:01 Sitagliptin Phosphate (Januvia) 100 mg PO DAILY [facility] Last Admin: 10/14/18 09:30 Dose: 100 mg - Labs Labs: 10/14/18 07:41 10/14/18 07:41 - Constitutional Appears: Well, No Acute Distress - Head Exam Head Exam: ATRAUMATIC, NORMAL INSPECTION - Eye Exam Eye Exam: EOMI. absent: Scleral icterus - ENT Exam ENT Exam: Mucous Membranes Moist. absent: Mucous Membranes Dry - Respiratory Exam Respiratory Exam: NORMAL BREATHING PATTERN. absent: Accessory Muscle Use, Respiratory Distress - GI/Abdominal Exam GI & Abdominal Exam: Soft, Tenderness (mildly ttp on deep palpation in LLQ), Normal Bowel Sounds. absent: Bruit, Distended, Firm, Guarding, Rigid, Mass, Organomegaly, Pulsatile Mass - Psychiatric Exam Psychiatric exam: Anxious, Normal Affect Additional comments: fast speech Assessment and Plan - Assessment and Plan (Free Text) Assessment: 48 yo WF with DM2, COPD, Symptomatic Bradycardia (s/p pacemaker) presenting with nausea, vomiting, abd pain and diarrhea. # Acute nausea, vomiting, abd pain and diarrhea: Improved. No signs of bleeding in emesis nor stool. Suspect related to acute food poising with viral or bacterial gastroenteritis/colitis given acute onset of symptoms. CT findings with enterocolitis. Stooling already improved. # Endo Hx: EGD+CSPY in ~2017 with gastritis (unknown details) and 1 polyp per pt report. Plan: - Cont diarrhea management, Carb Cont diet - C diff negative, therefore, can use loperamide if persistent diarrhea - Short course of Abx, 3-4 more days - Supportive care Pt seen and examined with Dr. Earl. Please see attestation for further recs/changes. <Eder Earl - Last Filed: 10/15/18 11:51> Objective - Vital Signs/Intake and Output Vital Signs (last 24 hours): Temp Pulse Resp BP Pulse Ox 98.5 F 60 20 115/78 98 10/15/18 08:00 02/08/19 08:00 10/15/18 08:00 10/15/18 08:00 10/15/18 08:00 Intake and Output: 10/15/18 10/15/18 06:59 18:59 Intake Total 2100 Balance 2100 - Medications Medications: Current Medications Enoxaparin Sodium (Lovenox) 40 mg SC DAILY [facility] Last Admin: 10/15/18 09:32 Dose: 40 mg Famotidine (Pepcid) 20 mg IVP Q12H [facility] Last Admin: 10/15/18 09:32 Dose: 20 mg Ciprofloxacin (Cipro 400mg/200ml Dsw) 400 mg in 200 mls @ 133 mls/hr IVPB Q12H [facility]; Protocol Last Admin: 10/15/18 11:06 Dose: 133 mls/hr Metronidazole (Flagyl) 500 mg in 100 mls @ 100 mls/hr IVPB Q8H [facility]; Protocol Last Admin: 10/15/18 05:29 Dose: 100 mls/hr Sodium Chloride (Sodium Chloride 0.9%) 1,000 mls @ 80 mls/hr IV .[id number] [facility] Last Admin: 10/15/18 03:00 Dose: 80 mls/hr Influenza Virus Vaccine (Flucelvax Quad [id number] Syr) 60 mcg IM .ONCE ONE Stop: 10/16/18 10:01 Insulin Human Regular (Novolin R) 0 unit SC ACHS [facility]; Protocol Last Admin: 10/15/18 08:11 Dose: 1 unit Loperamide HCl (Imodium) 2 mg PO Q4 PRN PRN Reason: Diarrhea Last Admin: 10/15/18 08:11 Dose: 2 mg Metformin HCl (Glucophage) 1,000 mg PO BID [facility] Last Admin: 10/15/18 09:32 Dose: 1,000 mg Pneumococcal Polyvalent Vaccine (Pneumovax 23 Vaccine) 0.5 ml IM .ONCE ONE Stop: 10/16/18 10:01 Sitagliptin Phosphate (Januvia) 100 mg PO DAILY [facility] Last Admin: 10/15/18 09:32 Dose: 100 mg - Labs Labs: 10/14/18 07:41 10/14/18 07:41 Attending/Attestation - Attestation I have personally seen and examined this patient.: Yes I have fully participated in the care of the patient.: Yes I have reviewed all pertinent clinical information, including history, physical exam and plan: Yes Notes (Text): 10/15/18 11:49 I have seen and examined patient with GI fellow. No acute events overnight, she reports 3 loose bowel movements over the past 12 hours but denies abdominal pain, nausea, vomiting, fever/chills. Tolerating PO liquids without difficulty. DM COPD Bradycardia s/p PPM Abdominal pain, diarrhea - resolving gastroenteritis - Advance diet as tolerated - Continue antibiotic therapy for additional 3 days - Can use immodium PRN for symptomatic relief - Suggest beginning once daily probiotic therapy - From GI standpoint if patient tolerating PO diet, can discharge home with subsequent outpatient follow up. Will sign off case, please reconsult as necessary, thank you.
[2018-10-15] MEDS: (Novolin R) Insulin Human Regular 100 units/ml vial SC SCH ×2 (08:11→11:40)
[2018-10-15] MEDS: Enoxaparin 40 mg Syringe SC SCH (09:32)
[2018-10-15] MEDS: Ciprofloxacin 400mg/200ml D5W 400 MG/200 ML BAG IVPB SCH (11:06)
--- NOTE | 2018-10-15 14:33 | CP.PCM.PN ---
Subjective - Date & Time of Evaluation Date of Evaluation: 10/15/18 Time of Evaluation: 14:33 - Subjective Subjective: PATIENT SEEN AND EXAMINED AT THE BEDSIDE Objective - Vital Signs/Intake and Output Vital Signs (last 24 hours): Temp Pulse Resp BP Pulse Ox 98.5 F 60 20 115/78 98 10/15/18 08:00 10/15/18 08:00 10/15/18 08:00 10/15/18 08:00 10/15/18 08:00 Intake and Output: 10/15/18 10/15/18 06:59 18:59 Intake Total 2100 Balance 2100 - Medications Medications: Current Medications Enoxaparin Sodium (Lovenox) 40 mg SC DAILY [facility] Last Admin: 10/15/18 09:32 Dose: 40 mg Famotidine (Pepcid) 20 mg IVP Q12H [facility] Last Admin: 10/15/18 09:32 Dose: 20 mg Ciprofloxacin (Cipro 400mg/200ml Dsw) 400 mg in 200 mls @ 133 mls/hr IVPB Q12H [facility]; Protocol Last Admin: 10/15/18 11:06 Dose: 133 mls/hr Metronidazole (Flagyl) 500 mg in 100 mls @ 100 mls/hr IVPB Q8H [facility]; Protocol Last Admin: 10/15/18 13:38 Dose: 100 mls/hr Sodium Chloride (Sodium Chloride 0.9%) 1,000 mls @ 80 mls/hr IV .[id number] [facility] Last Admin: 10/15/18 03:00 Dose: 80 mls/hr Influenza Virus Vaccine (Flucelvax Quad [id number] Syr) 60 mcg IM .ONCE ONE Stop: 10/16/18 10:01 Insulin Human Regular (Novolin R) 0 unit SC ACHS [facility]; Protocol Last Admin: 10/15/18 11:40 Dose: 1 unit Loperamide HCl (Imodium) 2 mg PO Q4 PRN PRN Reason: Diarrhea Last Admin: 10/15/18 08:11 Dose: 2 mg Metformin HCl (Glucophage) 1,000 mg PO BID [facility] Last Admin: 10/15/18 09:32 Dose: 1,000 mg Pneumococcal Polyvalent Vaccine (Pneumovax 23 Vaccine) 0.5 ml IM .ONCE ONE Stop: 10/16/18 10:01 Sitagliptin Phosphate (Januvia) 100 mg PO DAILY [facility] Last Admin: 10/15/18 09:32 Dose: 100 mg - Labs Labs: 10/14/18 07:41 10/14/18 07:41 Assessment and Plan - Assessment and Plan (Free Text) Assessment: FOLLOW UP WITH DR ELAM IN HIS OFFICE ------CALL FOR APPOINTMENT FOLLOW UP WITH DR ARENAS IN HIS OFFICE -------CALL FOR APPOINTMENT CONTINUE HOME MEDICATION NEW PRESCRIPTION GIVEN CIPRO 500 MG PO Q12 H FOR 3 DAYS FLAGYL 500 MG PO Q 8 H FOR 3 DAYS IMODIUM Q4 PRN FOR 3 DAYS ACTIVITY TOLERATED CALL DR ELAM OR GO TO THE EMERGENCY ROOM IF SYMPTOM RETURN OR WORSENING
[2018-10-15] MEDS ORDERED: Influenza Vaccine 60 mcg/0.5 mL SYR (4YR UP) IM ONE (15:15)
[2018-10-15] MEDS ORDERED: Pneumococcal 23-Valent Vaccine IM ONE (15:15)
[2018-10-15 15:56] VITALS: BP 108/77; PULSE 59; TEMP 98.3
--- NOTE | 2018-10-15 21:36 | CP.PCM.PN ---
Subjective - Date & Time of Evaluation Date of Evaluation: 10/15/18 Time of Evaluation: 20:40 - Subjective Subjective: dictated Objective - Vital Signs/Intake and Output Vital Signs (last 24 hours): Temp Pulse Resp BP Pulse Ox 98.3 F 59 L 20 108/77 98 10/15/18 15:05 10/15/18 15:05 10/15/18 15:05 10/15/18 15:05 10/15/18 15:05 Intake and Output: 10/15/18 10/16/18 18:59 06:59 Intake Total 1240 Balance 1240 - Labs Labs: 10/14/18 07:41 10/14/18 07:41
--- NOTE | 2018-10-15 21:40 | CP.PCM.DIS ---
Provider - Provider Date of Admission: 10/12/18 22:42 Attending physician: Jeevan Salas MD Time Spent in preparation of Discharge (in minutes): 30 Hospital Course - Lab Results Lab Results: Micro Results 10/12/18 00:07 Blood Blood Culture - Preliminary NO GROWTH AFTER 48 HOURS 10/12/18 00:06 Blood Blood Culture - Preliminary NO GROWTH AFTER 48 HOURS Most Recent Lab Values WBC 7.0 K/uL (4.8-10.8) 10/14/18 07:41 RBC 4.75 Mil/uL (3.80-5.20) 10/14/18 07:41 Hgb 14.4 g/dL (11.0-16.0) 10/14/18 07:41 Hct 42.8 % (34.0-47.0) 10/14/18 07:41 MCV 90.2 fL (81.0-99.0) 10/14/18 07:41 MCH 30.2 pg (27.0-31.0) 10/14/18 07:41 MCHC 33.5 g/dL (33.0-37.0) 10/14/18 07:41 RDW 14.6 % (11.5-14.5) H 10/14/18 07:41 Plt Count 190 K/uL (130-400) 10/14/18 07:41 MPV 10.2 fL (7.2-11.7) 10/14/18 07:41 Neut % (Auto) 68.5 % (50.0-75.0) 10/14/18 07:41 Lymph % (Auto) 19.5 % (20.0-40.0) L 10/14/18 07:41 [place] % (Auto) 9.1 % (0.0-10.0) 10/14/18 07:41 Eos % (Auto) 2.8 % (0.0-4.0) 10/14/18 07:41 Baso % (Auto) 0.1 % (0.0-2.0) 10/14/18 07:41 Neut # (Auto) 4.8 K/uL (1.8-7.0) 10/14/18 07:41 Lymph # (Auto) 1.4 K/uL (1.0-4.3) 10/14/18 07:41 [place] # (Auto) 0.6 K/uL (0.0-0.8) 10/14/18 07:41 Eos # (Auto) 0.2 K/uL (0.0-0.7) 10/14/18 07:41 Baso # (Auto) 0.0 K/uL (0.0-0.2) 10/14/18 07:41 Neutrophils % (Manual) 82 % (50-75) H 10/12/18 19:52 Band Neutrophils % 6 % (0-2) H 10/12/18 19:52 Lymphocytes % (Manual) 9 % (20-40) L 10/12/18 19:52 Monocytes % (Manual) 3 % (0-10) 10/12/18 19:52 Platelet Estimate Normal (NORMAL) 10/12/18 19:52 Sodium 139 mmol/L (132-148) 10/14/18 07:41 Potassium 3.8 mmol/L (3.6-5.2) 10/14/18 07:41 Chloride 107 mmol/L (98-107) 10/14/18 07:41 Carbon Dioxide 25 mmol/L (22-30) 10/14/18 07:41 Anion Gap 11 (10-20) 10/14/18 07:41 BUN 3 mg/dL (7-17) L 10/14/18 07:41 Creatinine 0.5 mg/dL (0.7-1.2) L 10/14/18 07:41 Est GFR ( Amer) > 60 10/14/18 07:41 Est GFR (Non-Af Amer) > 60 10/14/18 07:41 POC Glucose (mg/dL) 188 mg/dL (65-110) H 10/15/18 11:54 Random Glucose 214 mg/dL (65-105) H 10/14/18 07:41 Hemoglobin A1c 7.3 % (4.2-6.5) H 10/14/18 07:41 Calcium 8.8 mg/dl (8.6-10.4) 10/14/18 07:41 Total Bilirubin 0.5 mg/dL (0.2-1.3) 10/13/18 11:35 AST 15 U/L (14-36) 10/13/18 11:35 ALT 15 U/L (9-52) 10/13/18 11:35 Alkaline Phosphatase 67 U/L (38-126) 10/13/18 11:35 Troponin I 0.0170 ng/mL (0.00-0.120) 10/12/18 19:52 Total Protein 5.8 g/dL (6.3-8.3) L 10/13/18 11:35 Albumin 3.4 g/dL (3.5-5.0) L D 10/13/18 11:35 Globulin 2.4 gm/dL (2.2-3.9) 10/13/18 11:35 Albumin/Globulin Ratio 1.4 (1.0-2.1) 10/13/18 11:35 Lipase 47 U/L (23-300) 10/12/18 19:52 Urine Color Yellow (YELLOW) 10/12/18 20:44 Urine Clarity Clear (Clear) 10/12/18 20:44 Urine pH 6.0 (5.0-8.0) 10/12/18 20:44 Ur Specific [place] 1.042 (1.003-1.030) H 10/12/18 20:44 Urine Protein 2+ mg/dL (NEGATIVE) H 10/12/18 20:44 Urine Glucose (UA) 3+ mg/dL (Normal) H 10/12/18 20:44 Urine Ketones Trace mg/dL (NEGATIVE) 10/12/18 20:44 Urine Blood Negative (NEGATIVE) 10/12/18 20:44 Urine Nitrate Negative (NEGATIVE) 10/12/18 20:44 Urine Bilirubin Negative (NEGATIVE) 10/12/18 20:44 Urine Urobilinogen Normal mg/dL (0.2-1.0) 10/12/18 20:44 Ur Leukocyte Esterase Neg Chun/uL (Negative) 10/12/18 20:44 Urine WBC (Auto) 1 /hpf (0-5) 10/12/18 20:44 Urine RBC (Auto) 1 /hpf (0-3) 10/12/18 20:44 Ur Squamous Epith Cells 1 /hpf (0-5) 10/12/18 20:44 C. difficile Ag & Toxin Negative (NEGATIVE) 10/13/18 07:04 Discharge Exam - Head Exam Head Exam: ATRAUMATIC, NORMAL INSPECTION Discharge Plan - Discharge Medications Prescriptions: Ciprofloxacin HCl [Cipro] 500 mg PO Q12H 3 Days tab Metronidazole [Flagyl] 500 mg PO Q8H 3 Days tab Loperamide [Imodium] 2 mg PO Q4 PRN 3 Days cap PRN Reason: Diarrhea - Follow Up Plan Condition: GOOD Disposition: HOME/ ROUTINE Instructions: Ciprofloxacin (Systemic), Low Fiber Diet, Metronidazole (Systemic), Loperamide, Colitis (DC) Additional Instructions: FOLLOW UP WITH DR SALAS IN HIS OFFICE ------CALL FOR APPOINTMENT FOLLOW UP WITH DR ARENAS IN HIS OFFICE -------CALL FOR APPOINTMENT CONTINUE HOME MEDICATION NEW PRESCRIPTION GIVEN CIPRO 500 MG PO Q12 H FOR 3 DAYS FLAGYL 500 MG PO Q 8 H FOR 3 DAYS IMODIUM Q4 PRN FOR 3 DA[address] ACTIVITY TOLERATED CALL DR SALAS OR GO TO THE EMERGENCY ROOM IF SYMPTOM RETURN OR WORSENING Referrals: Eder Arenas MD [Staff Provider] - Jeevan Salas MD [Staff Provider] -
--- NOTE | 2018-10-16 10:42 | DS ---
DISCHARGE DIAGNOSES: 1. Acute gastroenteritis. 2. Dehydration. HISTORY OF PRESENT ILLNESS: This is a 48-year-old female with history of heart block, status post permanent pacemaker placement, who came in because of abdominal pain, nausea, vomiting, diarrhea. She was found to have acute gastroenteritis, seen by GI and the patient improved. She felt better with conservative medical management with antiemetics, IV hydration, potassium supplementation, electrolyte, blood cultures negative. Condition upon discharge stable. She need to be followed up as outpatient. Jeevan Salas MD
== END 2018-10-15 16:06 | disposition home or self-care (01) ==
LOC: C.ER 18:40 → C.3T 22:42
PROVIDERS: ADMIT Internal Medicine; ATTEND Internal Medicine
DX: K52.9 Noninfective gastroenteritis and colitis, unspecified (principal); E86.0 Dehydration; J44.9 Chronic obstructive pulmonary disease, unspecified; E11.9 Type 2 diabetes mellitus without complications; Z95.0 Presence of cardiac pacemaker
CPT/HCPCS: 36415; 74022; 74177; 80048; 80053; 81001; 81025; 82948; 83036; 83690; 84484; 85025; 87040; 87230; 96361; 96365; 96366; 96367; 96372; 96375; 96376; 99284; G0378; J0744; J1650; J1885; J2405; J7030; Q9967

== ENCOUNTER 2018-10-18 12:20 | Inpatient (IN) | payer MEDICARE, MEDICAID ==
[2018-10-18 12:48] VITALS: BMI 25.3
[2018-10-18] MEDS ORDERED: Sodium Chloride 0.9% 1,000 ML IV ONE ×2 (13:38→16:56)
[2018-10-18] MEDS ORDERED: Sodium Chloride 0.9% 1,000 ML ONE ×2 (13:59→17:09)
[2018-10-18 14:00] LABS: EOS # 0.2 K/uL (0.0-0.7); EOS % 2.4 % (0.0-4.0); HEMOGLOBIN 14.1 g/dL (11.0-16.0); LYMPH # 1.4 K/uL (1.0-4.3); LYMPH % 19.1 % (20.0-40.0); MEAN CELL VOLUME 88.6 fL (81.0-99.0); MEAN CORPUSCULAR HEMOGLOBIN 30.1 pg (27.0-31.0); MEAN CORPUSCULAR HGB CONC 33.9 g/dL (33.0-37.0); MEAN PLATELET VOLUME 9.6 fL (7.2-11.7); MONO # 0.6 K/uL (0.0-0.8); MONO % 7.9 % (0.0-10.0); NEUT # 5.3 K/uL (1.8-7.0); NEUT % 70.6 % (50.0-75.0); RBC 4.7 Mil/uL (3.80-5.20); RED CELL DISTRIBUTION WIDTH 14.4 % (11.5-14.5); WHITE BLOOD COUNT 7.5 K/uL (4.8-10.8)
[2018-10-18 14:05] LABS: HCG,QUALITATIVE URINE NEGATIVE (NEGATIVE)
[2018-10-18 14:13] LABS: SQUAMOUS EPITHIAL 1 /hpf (0-5); URINE BILIRUBIN NEGATIVE (NEGATIVE); URINE BLOOD NEGATIVE (NEGATIVE); URINE CLARITY Hazy (Clear); URINE COLOR Yellow (YELLOW); URINE GLUCOSE (UA) 3+ mg/dL (Normal); URINE LEUKOCYTE ESTERASE NEG Leu/uL (Negative); URINE PROTEIN NEGATIVE (NEGATIVE); URINE UROBILINOGEN NORMAL mg/dL (0.2-1.0)
[2018-10-18 14:16] LABS: ALB/GLOB RATIO 1.6 (1.0-2.1); ALBUMIN 4.4 g/dL (3.5-5.0); ALT/SGPT 83 U/L (9-52); AST/SGOT 123 U/L (14-36); BLOOD UREA NITROGEN 8 mg/dL (7-17); CALCIUM 9.2 mg/dl (8.6-10.4); GFR NON-AFRICAN AMERICAN > 60; LIPASE 52 U/L (23-300)
--- NOTE | 2018-10-18 14:56 | C.PDOC ---
History Of Present Illness 48 year old female presents to ED with complaint of nausea , vomiting , and diarrhea for 1 week after she ate oxtail. Patient was previously admitted on 10/12 and discharged on 10/15 and prescribed antibiotics. Patient reports finishing the round of antibiotics, but continues to have multiple episodes of watery diarrhea. She also admits to feeling light-headed and experiencing abdominal pain. Patient denies any chest pain, SOB, or dysuria. Time Seen by Provider: 10/18/18 13:33 Chief Complaint (Nursing): GI Problem History Per: Patient History/Exam Limitations: no limitations Onset/Duration Of Symptoms: Days (7) Current Symptoms Are (Timing): Still Present Location Of Pain/Discomfort: LLQ, Periumbilical, Suprapubic Quality Of Discomfort: "Pain" Associated Symptoms: Nausea, Vomiting, Diarrhea. denies: Fever, Chest Pain, Urinary Symptoms Past Medical History Reviewed: Historical Data, Nursing Documentation, Vital Signs Vital Signs: Last Vital Signs Temp 98.9 F 10/18/18 12:48 Pulse 73 10/18/18 12:48 Resp 16 10/18/18 12:48 BP 100/68 10/18/18 12:48 Pulse Ox 96 10/18/18 12:48 - Medical History PMH: Arthritis, Asthma, Bronchitis, COPD, Diabetes Denies: Chronic Kidney Disease Surgical History: Appendectomy, Endoscopy, Pacemaker (06/30/18 as per patient "because my heart rate was too low"), Tonsillectomy - [facility] Procedures EXCISION OR CORRECTION OF BUNIONETTE (03/02/13) Family History: States: Unknown Family Hx - Social History Hx Tobacco Use: No Hx Alcohol Use: No Hx Substance Use: No - Immunization History Hx Tetanus Toxoid Vaccination: Yes Hx Influenza Vaccination: Yes Hx Pneumococcal Vaccination: Yes Review Of Systems Constitutional: Negative for: Fever, Chills, Weakness Cardiovascular: Positive for: Light Headedness. Negative for: Chest Pain, Palpitations Respiratory: Negative for: Cough, Shortness of Breath Gastrointestinal: Positive for: Nausea, Vomiting, Abdominal Pain (suprapubic,periumbilical,left lower quadrant), Diarrhea Genitourinary: Negative for: Hematuria Neurological: Negative for: Weakness, Numbness, Dizziness Physical Exam - Physical Exam Appears: Well, Non-toxic, No Acute Distress, Other (comfortable) Skin: Normal Color, Warm, Dry Head: Atraumatic, Normacephalic Neck: Normal ROM, Supple Chest: Symmetrical, No Deformity Cardiovascular: Rhythm Regular, No Murmur Respiratory: No Accessory Muscle Use, No Rales, No Rhonchi, No Wheezing Gastrointestinal/Abdominal: Tenderness (right periumbilical region,suprapubic region, left lower quadrant), No Other (McBurney's point) Back: No CVA Tenderness Extremity: Capillary Refill (< 2 seconds) Extremity: Bilateral: Atraumatic, Normal Color And Temperature Pulses: Left Radial: Normal, Right Radial: Normal Neurological/Psych: Oriented x3, Normal Speech, Normal Cognition ED Course And Treatment - Laboratory Results Result Diagrams: 10/18/18 14:02 10/18/18 14:05 Lab Results: Total Bilirubin 0.4 mg/dL (0.2-1.3) 10/18/18 14:05 AST 123 U/L (14-36) H D 10/18/18 14:05 ALT 83 U/L (9-52) H D 10/18/18 14:05 Alkaline Phosphatase 73 U/L (38-126) 10/18/18 14:05 Total Protein 7.2 g/dL (6.3-8.3) 10/18/18 14:05 Albumin 4.4 g/dL (3.5-5.0) 10/18/18 14:05 Globulin 2.8 gm/dL (2.2-3.9) 10/18/18 14:05 Albumin/Globulin Ratio 1.6 (1.0-2.1) 10/18/18 14:05 Lipase 52 U/L (23-300) 10/18/18 14:05 Urine Color Yellow (YELLOW) 10/18/18 13:38 Urine Clarity Hazy (Clear) 10/18/18 13:38 Urine pH 6.0 (5.0-8.0) 10/18/18 13:38 Ur Specific [place] 1.030 (1.003-1.030) 10/18/18 13:38 Urine Protein Negative mg/dL (NEGATIVE) 10/18/18 13:38 Urine Glucose (UA) 3+ mg/dL (Normal) H 10/18/18 13:38 Urine Ketones 1+ mg/dL (NEGATIVE) H 10/18/18 13:38 Urine Blood Negative (NEGATIVE) 10/18/18 13:38 Urine Nitrate Negative (NEGATIVE) 10/18/18 13:38 Urine Bilirubin Negative (NEGATIVE) 10/18/18 13:38 Urine Urobilinogen Normal mg/dL (0.2-1.0) 10/18/18 13:38 Ur Leukocyte Esterase Neg Chun/uL (Negative) 10/18/18 13:38 Urine WBC (Auto) 1 /hpf (0-5) 10/18/18 13:38 Urine RBC (Auto) 1 /hpf (0-3) 10/18/18 13:38 Ur Squamous Epith Cells 1 /hpf (0-5) 10/18/18 13:38 Urine HCG, Qual Negative (NEGATIVE) 10/18/18 13:38 Urine HCG, Qual Negative (NEGATIVE) 10/18/18 13:38 O2 Sat by Pulse Oximetry: 96 (RA) Progress Note: Blood work and UA ordered for patient. Patient given Bentyl PO, Protonix IVP, and IV fluids. Disposition - Disposition - Scribe Statement The provider has reviewed the documentation as recorded by the Scribe (Alia Love) All medical record entries made by the Scribe were at my direction and personally dictated by me. I have reviewed the chart and agree that the record accurately reflects my personal performance of the history, physical exam, medical decision making, and the department course for this patient. I have also personally directed, reviewed, and agree with the discharge instructions and disposition.
[2018-10-18] MEDS ORDERED: Potassium Chloride 20 mEq ER Tab PO STA (16:32)
[2018-10-18] MEDS ORDERED: Potassium Chloride 20 mEq ER Tab PO ONE (16:48)
[2018-10-18] MEDS: Lactated Ringer's 1,000 ML IV SCH (20:09)
[2018-10-18] MEDS: metroNIDAZOLE IV 500 mg/100 ml 500 MG/100 ML BAG IVPB SCH (20:56)
--- NOTE | 2018-10-18 21:33 | CP.PCM.HP ---
Present on Admission - Present on Admission Any Indicators Present on Admission: No Past Patient History - Infectious Disease Hx of Infectious Diseases: None - Past Medical History & Family History Past Medical History?: Yes - Past Social History Smoking Status: Never Smoked - CARDIAC Hx Pacemaker: Yes (06/30/18 as per patient "because my heart rate was too low") - PULMONARY Hx Asthma: Yes Hx Bronchitis: Yes Hx Chronic Obstructive Pulmonary Disease (COPD): Yes - HEENT Hx HEENT Problems: No - RENAL Hx Chronic Kidney Disease: No - ENDOCRINE/METABOLIC Hx Endocrine Disorders: Yes Hx Diabetes Mellitus Type 2: Yes - HEMATOLOGICAL/ONCOLOGICAL Hx Blood Disorders: Yes Hx Shingles: Yes - INTEGUMENTARY Hx Dermatological Problems: Yes Other/Comment: HX: SHINGELS - MUSCULOSKELETAL/RHEUMATOLOGICAL Hx Arthritis: Yes - GASTROINTESTINAL Hx Gastrointestinal Disorders: No - GENITOURINARY/GYNECOLOGICAL Hx Genitourinary Disorders: No - PSYCHIATRIC Hx Substance Use: No - SURGICAL HISTORY Hx Appendectomy: Yes Hx Tonsillectomy: Yes - ANESTHESIA Hx Anesthesia: Yes Hx Anesthesia Reactions: No Hx Malignant Hyperthermia: No Meds Allergies/Adverse Reactions: Allergies Allergy/AdvReac Type Severity Reaction Status Date / Time No Known Allergies Allergy Verified 10/18/18 12:46 Results - Vital Signs Recent Vital Signs: Last Vital Signs Temp 98.1 F 10/18/18 18:28 Pulse 63 10/18/18 18:28 Resp 20 10/18/18 18:28 BP 119/77 10/18/18 18:28 Pulse Ox 97 10/18/18 18:28 - Labs Result Diagrams: 10/18/18 14:02 10/18/18 14:05 Labs: Laboratory Results - last 24 hr 10/18/18 10/18/18 10/18/18 13:38 14:02 14:05 WBC 7.5 RBC 4.70 Hgb 14.1 Hct 41.7 MCV 88.6 MCH 30.1 MCHC 33.9 RDW 14.4 Plt Count 207 MPV 9.6 Neut % (Auto) 70.6 Lymph % (Auto) 19.1 L [place] % (Auto) 7.9 Eos % (Auto) 2.4 Baso % (Auto) 0.0 Neut # (Auto) 5.3 Lymph # (Auto) 1.4 [place] # (Auto) 0.6 Eos # (Auto) 0.2 Baso # (Auto) 0.0 Sodium 139 Potassium 3.3 L Chloride 95 L Carbon Dioxide 33 H Anion Gap 14 BUN 8 Creatinine 0.6 L Est GFR ( Amer) > 60 Est GFR (Non-Af Amer) > 60 POC Glucose (mg/dL) Random Glucose 113 H D Calcium 9.2 Total Bilirubin 0.4 AST 123 H D ALT 83 H D Alkaline Phosphatase 73 Total Protein 7.2 Albumin 4.4 Globulin 2.8 Albumin/Globulin Ratio 1.6 Lipase 52 Urine Color Yellow Urine Clarity Hazy Urine pH 6.0 Ur Specific [place] 1.030 Urine Protein Negative Urine Glucose (UA) 3+ H Urine Ketones 1+ H Urine Blood Negative Urine Nitrate Negative Urine Bilirubin Negative Urine Urobilinogen Normal Ur Leukocyte Esterase Neg Urine WBC (Auto) 1 Urine RBC (Auto) 1 Ur Squamous Epith Cells 1 Urine HCG, Qual Negative 10/18/18 10/18/18 17:23 21:19 WBC RBC Hgb Hct MCV MCH MCHC RDW Plt Count MPV Neut % (Auto) Lymph % (Auto) [place] % (Auto) Eos % (Auto) Baso % (Auto) Neut # (Auto) Lymph # (Auto) [place] # (Auto) Eos # (Auto) Baso # (Auto) Sodium Potassium Chloride Carbon Dioxide Anion Gap BUN Creatinine Est GFR ( Amer) Est GFR (Non-Af Amer) POC Glucose (mg/dL) 95 169 H Random Glucose Calcium Total Bilirubin AST ALT Alkaline Phosphatase Total Protein Albumin Globulin Albumin/Globulin Ratio Lipase Urine Color Urine Clarity Urine pH Ur Specific [place] Urine Protein Urine Glucose (UA) Urine Ketones Urine Blood Urine Nitrate Urine Bilirubin Urine Urobilinogen Ur Leukocyte Esterase Urine WBC (Auto) Urine RBC (Auto) Ur Squamous Epith Cells Urine HCG, Qual
[2018-10-18] MEDS: (Novolin R) Insulin Human Regular 100 units/ml vial SC SCH (21:39)
[2018-10-18] MEDS: Ciprofloxacin 400mg/200ml D5W 400 MG/200 ML BAG IVPB SCH (22:11)
[2018-10-19] MEDS: metroNIDAZOLE IV 500 mg/100 ml 500 MG/100 ML BAG IVPB SCH ×3 (03:53→19:07)
[2018-10-19] MEDS: Lactated Ringer's 1,000 ML IV SCH ×3 (06:00→19:06)
[2018-10-19] MEDS: (Novolin R) Insulin Human Regular 100 units/ml vial SC SCH ×4 (07:37→21:42)
[2018-10-19] MEDS: Ciprofloxacin 400mg/200ml D5W 400 MG/200 ML BAG IVPB SCH ×2 (07:50→20:14)
[2018-10-19 08:36] LABS: BLOOD UREA NITROGEN 4 mg/dL (7-17); CALCIUM 8.4 mg/dl (8.6-10.4); GFR NON-AFRICAN AMERICAN > 60
[2018-10-19] MEDS: Enoxaparin 40 mg Syringe SC SCH (10:11)
[2018-10-19] MEDS: Bismuth Subsalicylate 262 mg Chew Tab PO PRN ×3 (10:14→22:08)
[2018-10-19 10:44] LABS: C DIFF TOXIN A B NEGATIVE (NEGATIVE)
[2018-10-19 12:03] LABS: FECAL LEUKOCYTES NEGATIVE (NEGATIVE)
--- NOTE | 2018-10-19 23:10 | CP.PCM.PN ---
Subjective - Date & Time of Evaluation Date of Evaluation: 10/19/18 Time of Evaluation: 07:20 - Subjective Subjective: dictated Objective - Vital Signs/Intake and Output Vital Signs (last 24 hours): Temp Pulse Resp BP Pulse Ox 98.0 F 60 20 106/71 97 10/19/18 08:10 10/19/18 08:10 10/19/18 08:10 10/19/18 08:10 10/19/18 20:00 Intake and Output: 10/19/18 10/20/18 18:59 06:59 Intake Total 1250 Balance 1250 - Medications Medications: Current Medications Acetaminophen (Tylenol 325mg Tab) 325 mg PO Q4H PRN PRN Reason: Headache Last Admin: 10/19/18 22:05 Dose: 325 mg Bismuth Subsalicylate (Pepto Bismol) 262 mg PO Q4 PRN PRN Reason: Diarrhea Last Admin: 10/19/18 22:08 Dose: 262 mg Enoxaparin Sodium (Lovenox) 40 mg SC DAILY [facility] Last Admin: 10/19/18 10:11 Dose: 40 mg Ciprofloxacin (Cipro 400mg/200ml Dsw) 400 mg in 200 mls @ 133 mls/hr IVPB Q12H [facility]; Protocol Last Admin: 10/19/18 20:14 Dose: 133 mls/hr Metronidazole (Flagyl) 500 mg in 100 mls @ 100 mls/hr IVPB Q8H RIK; Protocol Last Admin: 10/19/18 19:07 Dose: 100 mls/hr Lactated Ringer's (Lactated Ringer's) 1,000 mls @ 100 mls/hr IV .Q10H [facility]IK Last Admin: 10/19/18 19:06 Dose: 100 mls/hr Insulin Human Regular (Novolin R) 0 unit SC ACHS RIK; Protocol Last Admin: 10/19/18 21:42 Dose: Not Given Metformin HCl (Glucophage) 500 mg PO BID [facility] Last Admin: 10/19/18 17:35 Dose: 500 mg Sitagliptin Phosphate (Januvia) 100 mg PO DAILY [facility] Last Admin: 10/19/18 10:11 Dose: 100 mg - Labs Labs: 10/18/18 14:02 10/19/18 08:12
--- NOTE | 2018-10-20 03:55 | PN ---
DATE: 10/19/2018 SUBJECTIVE: The patient has persistent loose watery stool, eight bowel movements, cramps in the abdomen. No fevers. Stool for C. difficile negative/ For GI evaluation, on IV fluids, electrolytes replacement, antibiotics. PHYSICAL EXAMINATION: VITAL SIGNS: Blood pressure 106/71, pulse 60, respiratory rate 20, temperature 98. LUNGS: Clear. CARDIOVASCULAR SYSTEM: S1 and S2, regular. ABDOMEN: Soft. Epigastric tenderness with bowel sound exaggerated. ASSESSMENT: 1. Diarrhea, colitis, infectious versus osmotic. 2. Dehydration. 3. Diabetes. 4. History of heart block, atrioventricular pacemaker. PLAN: Antibiotics. Stool workup. Stool leukocyte negative. Monitor the patient. Jeevan Salas MD
[2018-10-20] MEDS: metroNIDAZOLE IV 500 mg/100 ml 500 MG/100 ML BAG IVPB SCH ×4 (04:20→20:49)
[2018-10-20] MEDS: Lactated Ringer's 1,000 ML IV SCH ×3 (04:21→11:29)
[2018-10-20] MEDS: Ciprofloxacin 400mg/200ml D5W 400 MG/200 ML BAG IVPB SCH ×2 (08:00→22:05)
[2018-10-20] MEDS: (Novolin R) Insulin Human Regular 100 units/ml vial SC SCH ×4 (09:17→22:05)
[2018-10-20] MEDS: Enoxaparin 40 mg Syringe SC SCH (10:06)
[2018-10-20 12:02] LABS: INR 1.2; PROTHROMBIN TIME 13.3 SECONDS (9.7-12.2)
[2018-10-20] MEDS ORDERED: Lidocaine Hydrochloride 5 ML INJ ONE (12:25)
[2018-10-20] MEDS ORDERED: Propofol 10 mg/ml Inj (20 ML) ONE (12:25)
[2018-10-20] MEDS ORDERED: Peg-Electrolyte Oral Soln 4L (Golytely) PO ONE (14:45)
[2018-10-20] MEDS ORDERED: Bisacodyl 5mg EC Tab PO ONE (17:00)
--- NOTE | 2018-10-20 21:32 | CP.PCM.PN ---
Subjective - Date & Time of Evaluation Date of Evaluation: 10/20/18 Time of Evaluation: 07:00 - Subjective Subjective: dictated Objective - Vital Signs/Intake and Output Vital Signs (last 24 hours): Temp Pulse Resp BP Pulse Ox 97.8 F 65 20 110/78 97 10/20/18 16:59 10/20/18 16:59 10/20/18 16:59 10/20/18 16:59 10/20/18 16:59 Intake and Output: 10/20/18 10/21/18 18:59 06:59 Intake Total 300 Balance 300 - Medications Medications: Current Medications Acetaminophen (Tylenol 325mg Tab) 325 mg PO Q4H PRN PRN Reason: Headache Last Admin: 10/20/18 21:12 Dose: 325 mg Bismuth Subsalicylate (Pepto Bismol) 262 mg PO Q4 PRN PRN Reason: Diarrhea Last Admin: 10/19/18 22:08 Dose: 262 mg Enoxaparin Sodium (Lovenox) 40 mg SC DAILY [facility] Last Admin: 10/20/18 10:06 Dose: Not Given Ciprofloxacin (Cipro 400mg/200ml Dsw) 400 mg in 200 mls @ 133 mls/hr IVPB Q12H [facility]IK; Protocol Last Admin: 10/20/18 08:00 Dose: 133 mls/hr Metronidazole (Flagyl) 500 mg in 100 mls @ 100 mls/hr IVPB Q8H [facility]; Protocol Last Admin: 10/20/18 20:49 Dose: 100 mls/hr Lactated Ringer's (Lactated Ringer's) 1,000 mls @ 100 mls/hr IV .Q10H [facility] Last Admin: 10/20/18 11:29 Dose: Not Given Insulin Human Regular (Novolin R) 0 unit SC ACHS RIK; Protocol Last Admin: 10/20/18 17:21 Dose: 1 units Metformin HCl (Glucophage) 500 mg PO BID [facility] Last Admin: 10/20/18 17:23 Dose: 500 mg Metoclopramide HCl (Reglan) 5 mg IVP Q6H [facility] Last Admin: 10/20/18 20:44 Dose: 5 mg Sitagliptin Phosphate (Januvia) 100 mg PO DAILY [facility] Last Admin: 10/20/18 10:09 Dose: Not Given - Labs Labs: 10/18/18 14:02 10/19/18 08:12 PT 13.3 SECONDS (9.7-12.2) H 10/20/18 11:41 INR 1.2 10/20/18 11:41 APTT 30 SECONDS (21-34) 10/20/18 11:41
[2018-10-21] MEDS: metroNIDAZOLE IV 500 mg/100 ml 500 MG/100 ML BAG IVPB SCH ×3 (03:58→20:49)
[2018-10-21] MEDS: Lactated Ringer's 1,000 ML IV SCH ×3 (06:00→20:51)
[2018-10-21] MEDS: (Novolin R) Insulin Human Regular 100 units/ml vial SC SCH ×4 (07:35→22:19)
[2018-10-21] MEDS: Ciprofloxacin 400mg/200ml D5W 400 MG/200 ML BAG IVPB SCH ×2 (07:49→21:37)
[2018-10-21] MEDS ORDERED: Propofol 10 mg/ml Inj (20 ML) ONE ×2 (10:29→10:47)
[2018-10-21] MEDS ORDERED: Lidocaine Hydrochloride 5 ML INJ ONE (10:29)
[2018-10-21] MEDS ORDERED: Glucagon Recombinant 1 mg Inj ONE (10:48)
[2018-10-21] MEDS ORDERED: Bisacodyl 5mg EC Tab PO ONE (17:00)
--- NOTE | 2018-10-21 21:13 | CP.PCM.PN ---
Subjective - Date & Time of Evaluation Date of Evaluation: 10/14/18 Time of Evaluation: 07:00 - Subjective Subjective: dictated Objective - Vital Signs/Intake and Output Vital Signs (last 24 hours): Temp Pulse Resp BP Pulse Ox 98.0 F 99 H 20 144/77 99 10/21/18 16:13 10/21/18 16:13 10/21/18 16:13 10/21/18 16:13 10/21/18 16:13 Intake and Output: 10/21/18 10/22/18 18:59 06:59 Intake Total 500 Balance 500 - Medications Medications: Current Medications Acetaminophen (Tylenol 325mg Tab) 325 mg PO Q4H PRN PRN Reason: Headache Last Admin: 10/20/18 21:12 Dose: 325 mg Bismuth Subsalicylate (Pepto Bismol) 262 mg PO Q4 PRN PRN Reason: Diarrhea Last Admin: 10/19/18 22:08 Dose: 262 mg Enoxaparin Sodium (Lovenox) 40 mg SC DAILY [facility] Last Admin: 10/20/18 10:06 Dose: Not Given Ciprofloxacin (Cipro 400mg/200ml Dsw) 400 mg in 200 mls @ 133 mls/hr IVPB Q12H RIK; Protocol Last Admin: 10/21/18 07:49 Dose: 133 mls/hr Metronidazole (Flagyl) 500 mg in 100 mls @ 100 mls/hr IVPB Q8H [facility]; Protocol Last Admin: 10/21/18 20:49 Dose: 100 mls/hr Lactated Ringer's (Lactated Ringer's) 1,000 mls @ 100 mls/hr IV .Q10H [facility] Last Admin: 10/21/18 20:51 Dose: 100 mls/hr Insulin Human Regular (Novolin R) 0 unit SC ACHS [facility]IK; Protocol Last Admin: 10/21/18 12:18 Dose: 2 units Metformin HCl (Glucophage) 500 mg PO BID [facility] Last Admin: 10/21/18 17:13 Dose: 500 mg Metoclopramide HCl (Reglan) 5 mg IVP Q6H [facility] Last Admin: 10/21/18 13:40 Dose: 5 mg Sitagliptin Phosphate (Januvia) 100 mg PO DAILY [facility] Last Admin: 10/21/18 10:56 Dose: Not Given - Labs Labs: 10/18/18 14:02 10/19/18 08:12 PT 13.3 SECONDS (9.7-12.2) H 10/20/18 11:41 INR 1.2 10/20/18 11:41 APTT 30 SECONDS (21-34) 10/20/18 11:41
[2018-10-22] MEDS: Lactated Ringer's 1,000 ML IV SCH ×4 (03:15→23:15)
[2018-10-22] MEDS: metroNIDAZOLE IV 500 mg/100 ml 500 MG/100 ML BAG IVPB SCH ×3 (03:57→21:18)
[2018-10-22 08:00] LABS: BASO % 0.2 % (0.0-2.0); EOS # 0.7 K/uL (0.0-0.7); EOS % 11.8 % (0.0-4.0); HEMOGLOBIN 14.6 g/dL (11.0-16.0); LYMPH # 1.7 K/uL (1.0-4.3); LYMPH % 30.4 % (20.0-40.0); MEAN CELL VOLUME 89.7 fL (81.0-99.0); MEAN CORPUSCULAR HEMOGLOBIN 28.9 pg (27.0-31.0); MEAN CORPUSCULAR HGB CONC 32.3 g/dL (33.0-37.0); MEAN PLATELET VOLUME 9.7 fL (7.2-11.7); MONO # 0.5 K/uL (0.0-0.8); MONO % 8.9 % (0.0-10.0); NEUT # 2.7 K/uL (1.8-7.0); NEUT % 48.7 % (50.0-75.0); NRBC % 0.1 % (0.0-2.0); RBC 5.03 Mil/uL (3.80-5.20); RED CELL DISTRIBUTION WIDTH 14.5 % (11.5-14.5); WHITE BLOOD COUNT 5.5 K/uL (4.8-10.8)
[2018-10-22] MEDS: (Novolin R) Insulin Human Regular 100 units/ml vial SC SCH ×4 (08:11→21:43)
[2018-10-22 08:15] LABS: BLOOD UREA NITROGEN 2 mg/dL (7-17); GFR NON-AFRICAN AMERICAN > 60
[2018-10-22] MEDS ORDERED: Midazolam 2 MG/2 ML VIAL ONE (08:52)
[2018-10-22] MEDS ORDERED: Propofol 10 mg/ml Inj (20 ML) ONE ×2 (08:52→09:14)
[2018-10-22] MEDS ORDERED: Lactated Ringer's 500 ML IV ONE ×2 (09:04)
[2018-10-22] MEDS: Ciprofloxacin 400mg/200ml D5W 400 MG/200 ML BAG IVPB SCH ×2 (10:42→21:45)
[2018-10-22] MEDS: LIPASE/PROTEASE/AMYLASE 4,200 U ECC PO SCH ×3 (10:57→21:20)
--- NOTE | 2018-10-22 16:00 | PN ---
DATE: 10/21/2018 SUBJECTIVE: The patient still has diarrhea. She is for colonoscopy tomorrow. Initial colonoscopy improperly preparation, so patient needs a new colonoscopy. No fever, no chills. No nausea, vomiting. Positive diarrhea. PHYSICAL EXAMINATION: VITAL SIGNS: Blood pressure 144/77, pulse 99, respiratory rate 20, temperature 98. LUNGS: Clear. No rales, no rhonchi. CARDIOVASCULAR SYSTEM: S1, S2. Regular. ABDOMEN: Bowel sound are exaggerated. ASSESSMENT AND PLAN: 1. Persistent diarrhea. Colonoscopy tomorrow morning. 2. Monitor electrolytes. 3. Monitor labs. Repeat labs tomorrow morning. Jeevan Salas MD
--- NOTE | 2018-10-22 19:16 | PN ---
DATE: 10/22/2018 SUBJECTIVE: The patient is for colonoscopy today. She has diarrhea, she has been going to bathroom because of preparation. She has weakness. She denies any nausea, vomiting. PHYSICAL EXAMINATION: VITAL SIGNS: Blood pressure 100/69, pulse 60, respiratory rate 20, temperature 98.1. LUNGS: Clear. CVS: S1 and S2, regular. ABDOMEN: . Bowel sound present. ASSESSMENT: Diarrhea persistent, colonoscopy today. PLAN: Continue current medication, monitor patient. Jeevan Salas MD
[2018-10-22 23:46] VITALS: O2SAT 97
[2018-10-23] MEDS: metroNIDAZOLE IV 500 mg/100 ml 500 MG/100 ML BAG IVPB SCH ×2 (04:03→11:45)
[2018-10-23 07:42] VITALS: BP 94/68; PULSE 70; RESP 18; TEMP 97.7
--- NOTE | 2018-10-23 07:49 | PN ---
DATE: 10/23/2018 LOCATION: 365, bed B. SUBJECTIVE: This is a 48-year-old female, seen and examined early in rounds today without significant clinical changes or reported active bleeding with much less bowel movement, less abdominal distention. The entire chart is reviewed, including the most recent lab and radiology study results, and the latest blood glucose level reported to be 225 with normal CBC. The patient is post colonoscopy, post upper endoscopy with biopsy. On record, it has to be mentioned that the gastric biopsy report was negative for Helicobacter pylori infection. The patient denied any actual chest pain, palpitation, nausea, or vomiting at this time. PHYSICAL EXAMINATION: GENERAL: A 48-year-old female. Tolerating oral intake so far well. VITAL SIGNS: Afebrile, pulse of 70, respiratory rate 20-22, blood pressure of 110/66. HEENT: Showed dry oral mucous membrane. Nonicteric sclerae. LUNGS: Few scattered crepitation. Decreased air entry at bases. HEART: Positive S1 and S2. ABDOMEN: Soft with mild generalized tenderness. No mass or organomegaly. No rebound tenderness or guarding. No reported evidence of active GI bleeding. EXTREMITIES: Without significant clubbing, cyanosis, or edema. NEUROLOGIC: No reported new neurological deficits, sensory or motor. IMPRESSION: 1. Re-exacerbation of peptic ulcer disease. 2. Colitis, internal hemorrhoids by a recent colonoscopy. 3. Past medical history including, but not limited to chronic obstructive pulmonary disease with bronchitis, osteoarthritis, poorly-controlled diabetes mellitus with possible diabetic gastroparesis and diabetic diarrhea. 4. 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 SUGGESTIONS: 1. Continue current management. 2. Adjust oral intake. 3. No . Further recommendation to follow. Hansa Baker MD
[2018-10-23] MEDS: (Novolin R) Insulin Human Regular 100 units/ml vial SC SCH ×2 (08:10→12:03)
[2018-10-23] MEDS: Ciprofloxacin 400mg/200ml D5W 400 MG/200 ML BAG IVPB SCH (08:12)
[2018-10-23] MEDS: Lactated Ringer's 1,000 ML IV SCH ×2 (09:15→10:08)
[2018-10-23] MEDS: LIPASE/PROTEASE/AMYLASE 4,200 U ECC PO SCH (10:04)
--- NOTE | 2018-10-23 17:46 | CP.PCM.PN ---
Subjective - Date & Time of Evaluation Date of Evaluation: 10/23/18 Time of Evaluation: 11:00 Objective - Vital Signs/Intake and Output Vital Signs (last 24 hours): Temp Pulse Resp BP Pulse Ox 97.7 F 70 18 94/68 L 97 10/23/18 07:41 10/23/18 07:41 10/23/18 07:41 10/23/18 07:41 10/23/18 07:41 Intake and Output: 10/23/18 10/23/18 06:59 18:59 Intake Total 2430 Balance 2430 - Labs Labs: 10/22/18 07:30 10/22/18 07:20 PT 13.3 SECONDS (9.7-12.2) H 10/20/18 11:41 INR 1.2 10/20/18 11:41 APTT 30 SECONDS (21-34) 10/20/18 11:41 Assessment and Plan - Assessment and Plan (Free Text) Assessment: Patient admitted with persistent diarrhea, generalized weakness, seen and examined. Alert and orientedx3, improved diarrhea and nausea, no acute pain. Discussed with DR Salas, plan to discharge home today , continue with flagyl orally. Advised to follow up with PMD in 1 week.
--- NOTE | 2018-10-24 04:07 | DS ---
DISCHARGE DIAGNOSES: 1. Nonspecific colitis. 2. Dehydration with hypokalemia, hypomagnesemia. 3. History of heart block. HISTORY OF PRESENT ILLNESS: A 48-year-old female with history of persisting diarrhea, recurrent, not responsive to treatment in the prior hospitalization, who came in because of diarrhea, generalized weakness, low magnesium, low potassium. She was evaluated. She underwent a colonoscopy which showed moderately congested mucosa in the descending colon with nonbleeding internal and external hemorrhoids and spasm in the entire colon and retained fecal matter. The patient was given Flagyl, Lomotil. The patient's condition started improving, and she is for discharge with outpatient followup. Condition upon discharge is stable. The patient will be followed up by me as outpatient. Jeevan Salas MD
== END 2018-10-23 13:38 | disposition home or self-care (01) | DRG 392 ==
LOC: C.ER 12:20 → C.3T 17:14 → OBSVTOIN 10-20 10:23
PROVIDERS: ADMIT Internal Medicine; ATTEND Internal Medicine
PROC: 0DB68ZX Excision of Stomach, Via Natural or Artificial Opening Endoscopic, Diagnostic (ICD-10-PCS; principal; 2018-10-20 13:34)
PROC: 0DBP8ZX Excision of Rectum, Via Natural or Artificial Opening Endoscopic, Diagnostic (ICD-10-PCS; 2018-10-21)
PROC: 0DJD8ZZ Inspection of Lower Intestinal Tract, Via Natural or Artificial Opening Endoscopic (ICD-10-PCS; 2018-10-22)
DX: K52.9 Noninfective gastroenteritis and colitis, unspecified (principal); K27.3 Acute peptic ulcer, site unspecified, without hemorrhage or perforation; E86.0 Dehydration; J44.9 Chronic obstructive pulmonary disease, unspecified; Z95.0 Presence of cardiac pacemaker; M19.90 Unspecified osteoarthritis, unspecified site; K63.5 Polyp of colon; I44.30 Unspecified atrioventricular block; E11.65 Type 2 diabetes mellitus with hyperglycemia; E87.6 Hypokalemia; E83.42 Hypomagnesemia